=== PATIENT | female | born 1935 | race African-American/Black ===

== ENCOUNTER 2016-06-11 19:00 | Inpatient (IN) | payer MEDICARE ==
[~2016-06-11] VITALS: Ht 157.5 cm; Wt 72.3 kg
[~2016-06-11 19:00] MED LIST: ASPI81TA9 PO; CEFP200T PO; HYDR-2666 PO; LEVO125T PO; LEVO175T2 PO; MAGN400C PO
[2016-06-11 21:11] LABS: BILIRUBIN,URINE NEGATIVE (NEG); GLUCOSE,URINE NEGATIVE (NEG); NITRITE,URINE POSITIVE (NEG); PH,URINE 5.5; PROTEIN,URINE 100 mg/dL (NEG-TRACE); UROBILINOGEN,URINE 0.2 mg/dL (0.2 mg/dL)
[2016-06-11 21:17] LABS: WBC,URINE >40 /HPF (0-4)
[2016-06-11 21:18] LABS: BACTERIA,URINE MANY /HPF (0-FEW); SQUAMOUS EPITHELIAL CELL,UR OCC /LPF
[2016-06-11 21:27] LABS: BASO % 0 % (0-3); EOS % 0 % (0-3); HEMATOCRIT 35.1 % (36.0-47.0); LYMPH # 0.3 x10^3/uL (1.0-4.8); LYMPH % 4 % (24-48); MEAN CORPUSCULAR HEMOGLOBIN 31 pg (25-35); MEAN CORPUSCULAR HGB CONC 34 g/dL (31-37); MEAN CORPUSCULAR VOLUME 91 fL (79-100); MONO % 6 % (0-9); NEUT % 91 % (31-73); PLATELET COUNT 190 x10^3/uL (140-400); RED BLOOD COUNT 3.88 x10^6/uL (3.50-5.40); WHITE BLOOD COUNT 8.9 x10^3/uL (4.0-11.0)
[2016-06-11] MEDS ORDERED: ACETAMINOPHEN 500 MG TABLET PO ONE (21:30)
[2016-06-11 21:44] LABS: CALCIUM 8.9 mg/dL (8.5-10.1); CREATININE 0.9 mg/dL (0.6-1.0); GFR 72.9; POTASSIUM 3.4 mmol/L (3.5-5.1)
[2016-06-11 21:48] LABS: % BASOS 1 % (0-3); ALBUMIN/GLOBULIN RATIO 0.6 (1.0-1.7); TOTAL BILIRUBIN 0.8 mg/dL (0.2-1.0); TOTAL PROTEIN 7.7 g/dL (6.4-8.2)
[2016-06-11 21:49] LABS: PLT ESTIMATE ADEQUATE (ADEQUATE); TOXIC GRANULATION SLIGHT
--- NOTE | 2016-06-11 22:24 | PHYS DOC ---
Past Medical History Past Medical History: Arthritis, Hypothyroid Additional Past Medical Histor: Colitis Past Surgical History: Colectomy Additional Past Surgical Histo: Thyroidectomy Alcohol Use: None Drug Use: None Adult General Chief Complaint Chief Complaint: PAIN ON URINATION HPI HPI Patient is a 80 year old female brought to the ED by family. She has had a fever for 1-2 days. She has not really been acting like herself, she has been sleepy. The patient states she feels ""tired and listless". Denies vomiting or diarrhea. She has had UTI symptoms including burning with urination, a few flecks of blood in her urine, and some occasional urinary incontinence. She has had a UTI before and believes that she has a UTI. PCP Dr. Rader Review of Systems Review of Systems Constitutional: As in history of present illness Eyes: Denies change in visual acuity, redness, or eye pain [] HENT: Denies nasal congestion or sore throat [] Respiratory: Denies cough or shortness of breath [] Cardiovascular: Denies chest pain GI: Denies abdominal pain, nausea, vomiting, bloody stools or diarrhea [] : As in history of present illness Musculoskeletal: Denies back pain or joint pain [] Integument: Denies rash or skin lesions [] Neurologic: She has a headache today and just feels weak all over, nonfocal Current Medications Current Medications Current Medications Medications (Trade) Dose Ordered Sig/[facility] Start Time Stop Time Status Last Admin Dose Admin Acetaminophen (Tylenol) 1,000 mg 1X ONCE 06/11/16 21:30 06/11/16 21:31 DC 06/11/16 21:48 1,000 MG Allergies Allergies Allergies Coded Allergies Type Severity Reaction Last Updated Verified meperidine Allergy Intermediate 02/25/15 No Physical Exam Physical Exam Constitutional: Well developed, well nourished, no acute distress, non-toxic appearance. Alert, appears to be mentating normally to me, looks young for her age HENT: Normocephalic, atraumatic, bilateral external ears normal, nose normal. [] Eyes: conjunctiva normal, no discharge. [] Neck: Normal range of motion, no stridor. [] Cardiovascular:Heart rate regular rhythm, no murmur [] Lungs & Thorax: Bilateral breath sounds clear to auscultation [] Abdomen: Bowel sounds normal, soft, no tenderness, no masses, no pulsatile masses. [] Skin: Warm, dry, no erythema, no rash. [] Back: No tenderness, no CVA tenderness. [] Extremities: No tenderness, no cyanosis, no clubbing, ROM intact, no edema. [] Neurologic: Alert and oriented X 3, normal motor function, normal sensory function, no focal deficits noted. [] Current Patient Data Vital Signs Vital Signs Date Time Temp Pulse Resp B/P (MAP) Pulse Ox O2 Delivery O2 Flow Rate FiO2 06/11/16 22:00 88 20 96 06/11/16 21:30 125/80 (95) 06/11/16 20:05 103.2 Room Air 103.2 Lab Values Laboratory Tests Test 06/11/16 19:54 06/11/16 20:20 Urine Collection Type Unknown Urine Color Yellow Urine Clarity Cloudy Urine pH 5.5 Urine Specific [place] 1.015 Urine Protein 100 mg/dL (NEG-TRACE) Urine Glucose (UA) Negative mg/dL (NEG) Urine Ketones (Stick) 15 mg/dL (NEG) Urine Blood Large (NEG) Urine Nitrite Positive (NEG) Urine Bilirubin Negative (NEG) Urine Urobilinogen Dipstick 0.2 mg/dL (0.2 mg/dL) Urine Leukocyte Esterase Large (NEG) Urine RBC 3-5 /HPF (0-2) Urine WBC >40 /HPF (0-4) Urine Squamous Epithelial Cells Occ /LPF Urine Bacteria Many /HPF (0-FEW) Urine Mucus Slight /LPF White Blood Count 8.9 x10^3/uL (4.0-11.0) Red Blood Count 3.88 x10^6/uL (3.50-5.40) Hemoglobin 12.0 g/dL (12.0-15.5) Hematocrit 35.1 % (36.0-47.0) L Mean Corpuscular Volume 91 fL (79-100) Mean Corpuscular Hemoglobin 31 pg (25-35) Mean Corpuscular Hemoglobin Concent 34 g/dL (31-37) Red Cell Distribution Width 15.0 % (11.5-14.5) H Platelet Count 190 x10^3/uL (140-400) Neutrophils (%) (Auto) 91 % (31-73) H Lymphocytes (%) (Auto) 4 % (24-48) L Monocytes (%) (Auto) 6 % (0-9) Eosinophils (%) (Auto) 0 % (0-3) Basophils (%) (Auto) 0 % (0-3) Neutrophils # (Auto) 8.1 x10^3uL (1.8-7.7) H Lymphocytes # (Auto) 0.3 x10^3/uL (1.0-4.8) L Monocytes # (Auto) 0.5 x10^3/uL (0.0-1.1) Eosinophils # (Auto) 0.0 x10^3/uL (0.0-0.7) Basophils # (Auto) 0.0 x10^3/uL (0.0-0.2) Segmented Neutrophils % 70 % (35-66) H Band Neutrophils % 14 % (0-9) H Lymphocytes % 10 % (24-48) L Monocytes % 5 % (0-10) Basophils % 1 % (0-3) Toxic Granulation Slight Platelet Estimate Adequate (ADEQUATE) Sodium Level 137 mmol/L (136-145) Potassium Level 3.4 mmol/L (3.5-5.1) L Chloride Level 99 mmol/L (98-107) Carbon Dioxide Level 25 mmol/L (21-32) Anion Gap 13 (6-14) Blood Urea Nitrogen 13 mg/dL (7-20) Creatinine 0.9 mg/dL (0.6-1.0) Estimated GFR (Cockcroft-Gault) 72.9 BUN/Creatinine Ratio 14 (6-20) Glucose Level 157 mg/dL (70-99) H Calcium Level 8.9 mg/dL (8.5-10.1) Total Bilirubin 0.8 mg/dL (0.2-1.0) Aspartate Amino Transferase (AST) 22 U/L (15-37) Alanine Aminotransferase (ALT) 15 U/L (14-59) Alkaline Phosphatase 107 U/L (46-116) Total Protein 7.7 g/dL (6.4-8.2) Albumin 3.0 g/dL (3.4-5.0) L Albumin/Globulin Ratio 0.6 (1.0-1.7) L Laboratory Tests 06/11/16 20:20 Laboratory Tests 06/11/16 20:20 EKG EKG [] Radiology/Procedures Radiology/Procedures [] Course & Med Decision Making Course & Med Decision Making Pertinent Labs and Imaging studies reviewed. (See chart for details) 80-year-old female presents with fever to 103, not feeling well, excessively sleepy, believes she may have UTI symptoms. Labs reviewed by me. She does have a UTI, culture was ordered. Other labs relatively unremarkable. I do believe with her altered mental status per family and her high fever she should be hospitalized for IV antibiotics. The patient and family are agreeable to that plan. I spoke with Dr. Logan, taking calls for Dr. Rader. He will admit the patient. I gave her a dose of Rocephin. [] Dragon Disclaimer Dragon Disclaimer This electronic medical record was generated, in whole or in part, using a voice recognition dictation system. Departure Departure Impression: Primary Impression: Altered level of consciousness Additional Impression: Urinary tract infection Disposition: ADMITTED INPATIENT Admitting Physician: Caprice Rader Condition: STABLE Referrals: CAPRICE RADER MD (PCP) Problem Qualifiers NBA HERMAN MD June 11, 2016 22:24
[2016-06-11] MEDS ORDERED: IV NORMAL SALINE 1000ML BAG 1,000 ML IV SCH (22:30)
--- NOTE | 2016-06-11 22:39 | ACF ---
Admission Forms Criteria URINARY COMPLICATIONS Clinical Indications for Inpatient Care (Place 'X' for any and all applicable criteria): Ongoing inpatient care may be indicated for urinary complications with ANY ONE of the following: [X ]I. Urinary tract infection requiring inpatient care as indicated by ANY ONE of the following(8)(19)(20): [ ]a) Severe symptoms (eg, high fever, severe pain) [ ]b) Vomiting or dehydration requiring ongoing inpatient care [X ]c) IV antibiotic needs that cannot be managed at lower level of care [ ]d) Hemodynamic instability [ ]e) Obstruction of collecting system by stone or tumor [ ]II. Urinary retention requiring drainage or surgery (3)(4)(5)(17)(18) [ ]III. Renal failure (Use Renal Failure Criteria for further information.) [ ]IV. Oliguria(30) [ ]V. Post obstructive diuresis requiring close monitoring of urine output and intravenous compensation for excessive fluid losses(33) Extended stay beyond goal length of stay for primary condition may be needed until ALL of the following are present(3)(4)(5)(8): [ ]a) Renal function (creatinine) at baseline, or daily decreases in creatinine consistent with renal function return [ ]b) Voiding adequately or with urinary catheter or percutaneous suprapubic tube and management regimen in place that is performable at lower level of care. [ ]c) Urine output adequate [ ]d) Fever absent or resolving [ ]e) Infection absent or treatable at next level of care The original [employer] content created by [employer] has been revised. The portions of the content which have been revised are identified through the use of italic text or in bold, and [facility] has neither reviewed nor approved the modified material. All other unmodified content is copyright [facility] Please see references footnoted in the original [facility] edition 2016 Admission Criteria Met?: Yes KYLAH MEZA June 11, 2016 22:39
[2016-06-11 22:57] VITALS: BP 125/53
[2016-06-12 03:08] VITALS: BP 107/59
[2016-06-12] MEDS: ACETAMINOPHEN 325 MG TABLET. PO PRN ×2 (06:23→15:30)
[2016-06-12 07:00] VITALS: BP 128/68
[2016-06-12] MEDS ORDERED: IV NORMAL SALINE 1000ML BAG 1,000 ML IV SCH (08:45)
--- NOTE | 2016-06-12 09:17 | PDOC1 ---
TAIWO ARTHUR NET WASHER 06/12/16 0916: HISTORY AND PHYSICAL Chief Complaint Chief Complaint This 80 year old female has been admitted with a chief complaint of UTI. She presented to the ED with altered mental status for several day, dysuria with some incontinence and fever. Her temperature on admit was 103.2F. UA was positive. She was given Tylenol 1gm po, Rocephin 1gm IV, NS 100cc/hr and admitted. Problem List Problems Medical Problems: (1) Altered level of consciousness Status: Acute (2) Urinary tract infection Status: Acute Past Medical History Cardiovascular: HTN, [place] (h/o NSTEMI 2015), Pulmonary hypertension CENTRAL NERVOUS SYSTEM: Other GI: Other (cholelithiasis, ulcerative colitis ) Musculoskeletal: Osteoarthritis Renal/: Other (h/o hydroureteronephrosis/UTI sepsis 2015) Endocrine: Hypothyroidism (surgical induced ) Past Surgical History Past Surgical History: Tonsillectomy, Other (colectomy/ileostomy; thyroidectomy ) Past Family History Family History: Coronary Artery Disease Past Social History PSH negative h/o tobacco, ETOH, or illicit drug use Review of Symptoms Review of Symptoms A 14 point ROS was completed with the following noted as positive: per HPI + headache Other systems reviewed and negative. Medications medications reviewed and reconciled Allergy Allergies Coded Allergies Type Severity Reaction Last Updated Verified meperidine Allergy Intermediate 02/25/15 No Physical Exam Physical Exam General appearance - alert, ill appearing, and in mild distress r/t headache Mental Status - alert, oriented to person, place, and time, affect appropriate to mood Head - normal Chest - clear to auscultation, no wheezes, rales or rhonchi, symmetric air entry Heart - S1 and S2 normal Abdomen - soft, nontender, nondistended, no masses or organomegaly Neurological - no acute focal neurological deficits noted. Musculoskeletal - no muscular tenderness noted Extremities - no pedal edema Skin - warm and dry VTE Prophylaxis Ordered VTE Prophylaxis Devices: Yes VTE Pharmacological Prophylaxi: No Assessment Labs Laboratory Tests Test 06/11/16 19:54 06/11/16 20:20 Urine Collection Type Unknown Urine Color Yellow Urine Clarity Cloudy Urine pH 5.5 Urine Specific [place] 1.015 Urine Protein 100 mg/dL (NEG-TRACE) Urine Glucose (UA) Negative mg/dL (NEG) Urine Ketones (Stick) 15 mg/dL (NEG) Urine Blood Large (NEG) Urine Nitrite Positive (NEG) Urine Bilirubin Negative (NEG) Urine Urobilinogen Dipstick 0.2 mg/dL (0.2 mg/dL) Urine Leukocyte Esterase Large (NEG) Urine RBC 3-5 /HPF (0-2) Urine WBC >40 /HPF (0-4) Urine Squamous Epithelial Cells Occ /LPF Urine Bacteria Many /HPF (0-FEW) Urine Mucus Slight /LPF White Blood Count 8.9 x10^3/uL (4.0-11.0) Red Blood Count 3.88 x10^6/uL (3.50-5.40) Hemoglobin 12.0 g/dL (12.0-15.5) Hematocrit 35.1 % (36.0-47.0) Mean Corpuscular Volume 91 fL (79-100) Mean Corpuscular Hemoglobin 31 pg (25-35) Mean Corpuscular Hemoglobin Concent 34 g/dL (31-37) Red Cell Distribution Width 15.0 % (11.5-14.5) Platelet Count 190 x10^3/uL (140-400) Neutrophils (%) (Auto) 91 % (31-73) Lymphocytes (%) (Auto) 4 % (24-48) Monocytes (%) (Auto) 6 % (0-9) Eosinophils (%) (Auto) 0 % (0-3) Basophils (%) (Auto) 0 % (0-3) Neutrophils # (Auto) 8.1 x10^3uL (1.8-7.7) Lymphocytes # (Auto) 0.3 x10^3/uL (1.0-4.8) Monocytes # (Auto) 0.5 x10^3/uL (0.0-1.1) Eosinophils # (Auto) 0.0 x10^3/uL (0.0-0.7) Basophils # (Auto) 0.0 x10^3/uL (0.0-0.2) Segmented Neutrophils % 70 % (35-66) Band Neutrophils % 14 % (0-9) Lymphocytes % 10 % (24-48) Monocytes % 5 % (0-10) Basophils % 1 % (0-3) Toxic Granulation Slight Platelet Estimate Adequate (ADEQUATE) Sodium Level 137 mmol/L (136-145) Potassium Level 3.4 mmol/L (3.5-5.1) Chloride Level 99 mmol/L (98-107) Carbon Dioxide Level 25 mmol/L (21-32) Anion Gap 13 (6-14) Blood Urea Nitrogen 13 mg/dL (7-20) Creatinine 0.9 mg/dL (0.6-1.0) Estimated GFR (Cockcroft-Gault) 72.9 BUN/Creatinine Ratio 14 (6-20) Glucose Level 157 mg/dL (70-99) Calcium Level 8.9 mg/dL (8.5-10.1) Total Bilirubin 0.8 mg/dL (0.2-1.0) Aspartate Amino Transf (AST/SGOT) 22 U/L (15-37) Alanine Aminotransferase (ALT/SGPT) 15 U/L (14-59) Alkaline Phosphatase 107 U/L (46-116) Total Protein 7.7 g/dL (6.4-8.2) Albumin 3.0 g/dL (3.4-5.0) Albumin/Globulin Ratio 0.6 (1.0-1.7) Laboratory Tests Test 06/11/16 19:54 06/11/16 20:20 Urine Collection Type Unknown Urine Color Yellow Urine Clarity Cloudy Urine pH 5.5 Urine Specific [place] 1.015 Urine Protein 100 mg/dL (NEG-TRACE) Urine Glucose (UA) Negative mg/dL (NEG) Urine Ketones (Stick) 15 mg/dL (NEG) Urine Blood Large (NEG) Urine Nitrite Positive (NEG) Urine Bilirubin Negative (NEG) Urine Urobilinogen Dipstick 0.2 mg/dL (0.2 mg/dL) Urine Leukocyte Esterase Large (NEG) Urine RBC 3-5 /HPF (0-2) Urine WBC >40 /HPF (0-4) Urine Squamous Epithelial Cells Occ /LPF Urine Bacteria Many /HPF (0-FEW) Urine Mucus Slight /LPF White Blood Count 8.9 x10^3/uL (4.0-11.0) Red Blood Count 3.88 x10^6/uL (3.50-5.40) Hemoglobin 12.0 g/dL (12.0-15.5) Hematocrit 35.1 % (36.0-47.0) Mean Corpuscular Volume 91 fL (79-100) Mean Corpuscular Hemoglobin 31 pg (25-35) Mean Corpuscular Hemoglobin Concent 34 g/dL (31-37) Red Cell Distribution Width 15.0 % (11.5-14.5) Platelet Count 190 x10^3/uL (140-400) Neutrophils (%) (Auto) 91 % (31-73) Lymphocytes (%) (Auto) 4 % (24-48) Monocytes (%) (Auto) 6 % (0-9) Eosinophils (%) (Auto) 0 % (0-3) Basophils (%) (Auto) 0 % (0-3) Neutrophils # (Auto) 8.1 x10^3uL (1.8-7.7) Lymphocytes # (Auto) 0.3 x10^3/uL (1.0-4.8) Monocytes # (Auto) 0.5 x10^3/uL (0.0-1.1) Eosinophils # (Auto) 0.0 x10^3/uL (0.0-0.7) Basophils # (Auto) 0.0 x10^3/uL (0.0-0.2) Segmented Neutrophils % 70 % (35-66) Band Neutrophils % 14 % (0-9) Lymphocytes % 10 % (24-48) Monocytes % 5 % (0-10) Basophils % 1 % (0-3) Toxic Granulation Slight Platelet Estimate Adequate (ADEQUATE) Sodium Level 137 mmol/L (136-145) Potassium Level 3.4 mmol/L (3.5-5.1) Chloride Level 99 mmol/L (98-107) Carbon Dioxide Level 25 mmol/L (21-32) Anion Gap 13 (6-14) Blood Urea Nitrogen 13 mg/dL (7-20) Creatinine 0.9 mg/dL (0.6-1.0) Estimated GFR (Cockcroft-Gault) 72.9 BUN/Creatinine Ratio 14 (6-20) Glucose Level 157 mg/dL (70-99) Calcium Level 8.9 mg/dL (8.5-10.1) Total Bilirubin 0.8 mg/dL (0.2-1.0) Aspartate Amino Transf (AST/SGOT) 22 U/L (15-37) Alanine Aminotransferase (ALT/SGPT) 15 U/L (14-59) Alkaline Phosphatase 107 U/L (46-116) Total Protein 7.7 g/dL (6.4-8.2) Albumin 3.0 g/dL (3.4-5.0) Albumin/Globulin Ratio 0.6 (1.0-1.7) Plan Plan 1. UTI with SIRS, no sepsis 2. severe weakness and debility 3. encephalopathy due to UTI 4. HTN 5. hypothyroid surgical induced 6. elevated BS 7. pulmonary HTN 8. cholelithiasis asymptomatic 9. h/o hydroureteronephrosis UTI sepsis Feb 2015 10. h/o ulcerative colitis with colectomy/ileostomy 11. severe PCL malnutrition decreased oral intake 12. h/o NSTEMI Feb 2015 13. frontal headache 14. hypokalemia POA PLAN: UTI ED urine sample voided, will obtain urine c/s straight cath Rocephin 1gm IV continue h/o hydroureteronephrosis -will obtain US renal fever T103.2F improved to 98.1-no leukocytosis +SIRS continue IV NS 100cc/hr hypokalemia ADmit K 3.4 recheck 06/12 abnormal glucose check Hba1c 06/12 WILLSON Tylenol [place] 5/325 prn malnutrition support intake weakness/debility PT OT eval and treat encephalopathy improved DVT/GI prophylaxis SCD/DARIO PPI For more details regarding further plans, please refer to the orders. CAPRICE RADER MD 06/12/16 0925: HISTORY AND PHYSICAL Plan Plan The patient was seen and examined by me. Chart reviewed and plan of care formulated. Discussed with, reviewed and agree with SHEET SORTER's notes, plan of care and orders with modifications as necessary. For more details regarding further plans, please refer to the orders. Hypokalemia- replace. ID consult.Fever 103.2/? acute pyelonephritis. Acute metabolic encephalopathy - better. D/w pt and her daughter. JERSONTAIWOARVIND Kent APRN June 12, 2016 09:16 CAPRICE RADER MD June 12, 2016 09:25
[2016-06-12] MEDS ORDERED: ACETAMINOPHEN 325 MG TABLET. PO PRN (09:30)
[2016-06-12] MEDS ORDERED: POTASSIUM CHLORIDE 20 MEQ TABLET.ER. PO ONE (09:30)
[2016-06-12] MEDS ORDERED: VANCOMYCIN PER PHARMACY MC PRN (10:00)
--- NOTE | 2016-06-12 10:00 | PDOC ---
Infectious Disease Note Vital Sign Vital Signs Vital Signs Date Time Temp Pulse Resp B/P (MAP) Pulse Ox O2 Delivery O2 Flow Rate FiO2 06/12/16 07:00 98.1 94 20 128/68 (88) 95 Room Air 98.1 Physical Exam PHYSICAL EXAM Labs Lab Laboratory Tests Test 06/11/16 19:54 06/11/16 20:20 Urine Collection Type Unknown Urine Color Yellow Urine Clarity Cloudy Urine pH 5.5 Urine Specific [place] 1.015 Urine Protein 100 mg/dL (NEG-TRACE) Urine Glucose (UA) Negative mg/dL (NEG) Urine Ketones (Stick) 15 mg/dL (NEG) Urine Blood Large (NEG) Urine Nitrite Positive (NEG) Urine Bilirubin Negative (NEG) Urine Urobilinogen Dipstick 0.2 mg/dL (0.2 mg/dL) Urine Leukocyte Esterase Large (NEG) Urine RBC 3-5 /HPF (0-2) Urine WBC >40 /HPF (0-4) Urine Squamous Epithelial Cells Occ /LPF Urine Bacteria Many /HPF (0-FEW) Urine Mucus Slight /LPF White Blood Count 8.9 x10^3/uL (4.0-11.0) Red Blood Count 3.88 x10^6/uL (3.50-5.40) Hemoglobin 12.0 g/dL (12.0-15.5) Hematocrit 35.1 % (36.0-47.0) Mean Corpuscular Volume 91 fL (79-100) Mean Corpuscular Hemoglobin 31 pg (25-35) Mean Corpuscular Hemoglobin Concent 34 g/dL (31-37) Red Cell Distribution Width 15.0 % (11.5-14.5) Platelet Count 190 x10^3/uL (140-400) Neutrophils (%) (Auto) 91 % (31-73) Lymphocytes (%) (Auto) 4 % (24-48) Monocytes (%) (Auto) 6 % (0-9) Eosinophils (%) (Auto) 0 % (0-3) Basophils (%) (Auto) 0 % (0-3) Neutrophils # (Auto) 8.1 x10^3uL (1.8-7.7) Lymphocytes # (Auto) 0.3 x10^3/uL (1.0-4.8) Monocytes # (Auto) 0.5 x10^3/uL (0.0-1.1) Eosinophils # (Auto) 0.0 x10^3/uL (0.0-0.7) Basophils # (Auto) 0.0 x10^3/uL (0.0-0.2) Segmented Neutrophils % 70 % (35-66) Band Neutrophils % 14 % (0-9) Lymphocytes % 10 % (24-48) Monocytes % 5 % (0-10) Basophils % 1 % (0-3) Toxic Granulation Slight Platelet Estimate Adequate (ADEQUATE) Sodium Level 137 mmol/L (136-145) Potassium Level 3.4 mmol/L (3.5-5.1) Chloride Level 99 mmol/L (98-107) Carbon Dioxide Level 25 mmol/L (21-32) Anion Gap 13 (6-14) Blood Urea Nitrogen 13 mg/dL (7-20) Creatinine 0.9 mg/dL (0.6-1.0) Estimated GFR (Cockcroft-Gault) 72.9 BUN/Creatinine Ratio 14 (6-20) Glucose Level 157 mg/dL (70-99) Calcium Level 8.9 mg/dL (8.5-10.1) Total Bilirubin 0.8 mg/dL (0.2-1.0) Aspartate Amino Transf (AST/SGOT) 22 U/L (15-37) Alanine Aminotransferase (ALT/SGPT) 15 U/L (14-59) Alkaline Phosphatase 107 U/L (46-116) Total Protein 7.7 g/dL (6.4-8.2) Albumin 3.0 g/dL (3.4-5.0) Albumin/Globulin Ratio 0.6 (1.0-1.7) Objective Assessment Fever UTI - POA 5/7 Bandemia WILLSON Plan Plan of Care Change to Cefepime/Vanc F/u labs and cults Reviewed previous records d/w daughter Thank you # [id number] HADLEY RICE MD June 12, 2016 10:00
[2016-06-12 10:17] LABS: BASO % 0 % (0-3); EOS % 0 % (0-3); HEMATOCRIT 33.7 % (36.0-47.0); HEMOGLOBIN 11.5 g/dL (12.0-15.5); LYMPH # 0.4 x10^3/uL (1.0-4.8); LYMPH % 5 % (24-48); MEAN CORPUSCULAR HEMOGLOBIN 31 pg (25-35); MEAN CORPUSCULAR HGB CONC 34 g/dL (31-37); MEAN CORPUSCULAR VOLUME 91 fL (79-100); MONO % 7 % (0-9); NEUT % 88 % (31-73); PLATELET COUNT 175 x10^3/uL (140-400); RED CELL DISTRIBUTION WIDTH 15.3 % (11.5-14.5); WHITE BLOOD COUNT 8.6 x10^3/uL (4.0-11.0)
[2016-06-12] MEDS: PANTOPRAZOLE 40 MG TABLET.DR. PO SCH (10:20)
[2016-06-12] MEDS: LEVOTHYROXINE 175 MCG TABLET PO SCH (10:20)
[2016-06-12] MEDS: HYDROcodone/APAP 5/325MG 1 TAB TABLET PO PRN ×2 (10:23→18:21)
[2016-06-12 10:24] LABS: CALCIUM 8.4 mg/dL (8.5-10.1); CREATININE 1.3 mg/dL (0.6-1.0); GFR 47.7; POTASSIUM 3.2 mmol/L (3.5-5.1)
[2016-06-12] MEDS: POTASSIUM CHLORIDE 20 MEQ in IV NORMAL SALINE 1000ML BAG 1,000 ML IV SCH (10:25)
--- NOTE | 2016-06-12 10:53 | RAD ---
Exam performed: Renal sonogram. Indication: Urinary tract infection Date of Service: 06/12/16 . Comparison: None available Technique: Real-time grayscale imaging of the kidneys is performed and images are obtained. Findings: Both kidneys are normal in size and echogenicity. The right kidney measures 10.8 x 4.9 x 4.4 cm whereas the left kidney measures 10.5 x 4.6 x 6.2 cm. There is mild right hydronephrosis. No perinephric fluid collection. The urinary bladder is nondistended and appears normal. Impression: 1. Mild right hydronephrosis, otherwise unremarkable exam.
[2016-06-12 10:56] VITALS: BP 94/54
[2016-06-12] MEDS ORDERED: VANCOMYCIN 1.5 GM in IV NORMAL SALINE 500ML BAG 500 ML IV ONE (11:00)
[2016-06-12] MEDS ORDERED: VANCOMYCIN 1.75 GM in IV NORMAL SALINE 500ML BAG 500 ML IV ONE (12:00)
[2016-06-12] MEDS: CEFEPIME HCL 1 GM in IV NORMAL SALINE 50ML 50 ML IV SCH ×2 (13:01→16:00)
[2016-06-12 14:45] VITALS: BP 136/81
[2016-06-12] MEDS ORDERED: BENZOCAINE/MENTHOL LOZENGE. PO PRN (16:15)
--- NOTE | 2016-06-12 17:07 | RAD ---
Exam performed: Two-view chest Indication: cough Date of Service: 06/12/2016 6:14 PM Comparison: One view chest from 02/20/15. PA and lateral view chest findings: Cardiomediastinal silhouette is within limits of normal. Ectatic aorta .No acute infiltrates, effusion or pneumothorax is detected. There is a nodule in the right upper lobe. Stable Minimal blunting of the right costophrenic angle, likely pleural thickening. The bony structures are normal. Impression: No acute cardiac pulmonary process detected.
[2016-06-12 19:00] VITALS: BP 86/54
[2016-06-12 23:00] VITALS: BP 97/53
[2016-06-13] MEDS: CEFEPIME HCL 1 GM in IV NORMAL SALINE 50ML 50 ML IV SCH ×2 (00:01→05:55)
[2016-06-13] MEDS: POTASSIUM CHLORIDE 20 MEQ in IV NORMAL SALINE 1000ML BAG 1,000 ML IV SCH ×2 (02:49→05:42)
[2016-06-13] MEDS: ACETAMINOPHEN 325 MG TABLET. PO PRN (02:54)
--- NOTE | 2016-06-13 03:35 | CONS ---
DATE OF CONSULTATION: 06/12/2016 LOCATION: The patient's room 550. REQUESTING PHYSICIAN: Dr. Roslyn Medina. REASON FOR CONSULTATION: Fever. HISTORY OF PRESENT ILLNESS: The patient is a pleasant 80-year-old -[place] female with a history of hypothyroidism as well as ulcerative colitis with history of colectomy as well as previous urinary tract infection. She has not been on any antibiotics for several months, but for the past week, she has been feeling somewhat down and more "listless." She does have complications with some incontinence of her urine, but did state that her urine has become darker over the past several days. Additionally, she has felt nauseated. She has had headache and had some shaking chills. She presented to [facility] on the and was found to have a temperature of 103.2. White blood cell count was 8.9, but she had 14% bands. Urinalysis was concerning for urinary tract infection. She has not had any imaging performed. She was placed on Rocephin and admitted to the hospital. Currently, she is lying in bed. She has a mild headache. No sinus issues or drainage. No sore throat or cough or chest pain. She has an ostomy. She denies any falls or traumas. No rashes. PAST MEDICAL HISTORY: Positive for previous urinary tract infection with some sepsis. Cultures were negative. History of hypertension, myocardial infarction, non-STEMI, pulmonary hypertension, cholelithiasis, ulcerative colitis, osteoarthritis, and hypothyroidism. PAST SURGICAL HISTORY: Positive for tonsillectomy, thyroidectomy, colectomy with ileostomy. REVIEW OF SYSTEMS: Otherwise negative except for mentioned above. ALLERGIES: LISTED MEPERIDINE. SOCIAL HISTORY: No tobacco, alcohol or illicit drugs. She has very good support. Her daughter is currently with her. FAMILY HISTORY: Positive for coronary artery disease. CURRENT MEDICATIONS: Include Rocephin, Tylenol, hydrocodone, levothyroxine, pantoprazole. PHYSICAL EXAMINATION: VITAL SIGNS: T-max was 103.2 at presentation, currently 98.1, pulse 94, respirations 20, blood pressure 120/68, satting 95% on room air. CONSTITUTIONAL: She is very pleasant. She is in no acute distress. She looks tired. HEENT: Pupils are equal and reactive. Oral cavity and pharynx, she has some dentures. NECK: Supple with good range of motion. No JVD. LUNGS: Clear to auscultation. HEART: S1, S2. ABDOMEN: Soft, nontender, nondistended. Ostomy is in place. EXTREMITIES: No clubbing, cyanosis or gross edema. SKIN: Warm to touch without signs of rash. NEUROLOGIC: She is nonfocal and appropriate, moves all extremities. PSYCHIATRIC: Affect is appropriate and pleasant. LABORATORY VALUES: White count 8.9, hemoglobin 12, platelets of 190 with 70 segs, 14 bands. Creatinine is 0.9, glucose of 157 with normal liver function study tests. Urinalysis concerning for urinary tract infection. Cultures are pending. There are no imaging. IMPRESSION: 1. Fever. 2. Urinary tract infection present on admission. 3. Bandemia. 4. Headache. RECOMMENDATIONS: We will change to cefepime and vancomycin. The vancomycin to help cover potential Enterococcus. She has had previous urinary tract infections treated with Rocephin and cefpodoxime in the past with the concern for a potential resistance. We will follow up on labs and cultures and I did review her previous records. This was discussed with the daughter. Thank you for allowing me to participate in the patient's care. If you have any questions, please do not hesitate to contact me. HADLEY RICE MD DR: JACQUI/yordy JOB#: [id number] / [id number]
[2016-06-13] MEDS: LEVOTHYROXINE 175 MCG TABLET PO SCH (05:55)
[2016-06-13 07:00] VITALS: BP 102/57
[2016-06-13 07:11] LABS: BASO % 0 % (0-3); EOS % 0 % (0-3); HEMATOCRIT 30.9 % (36.0-47.0); HEMOGLOBIN 10.2 g/dL (12.0-15.5); LYMPH # 0.6 x10^3/uL (1.0-4.8); LYMPH % 8 % (24-48); MEAN CORPUSCULAR HEMOGLOBIN 31 pg (25-35); MEAN CORPUSCULAR HGB CONC 33 g/dL (31-37); MEAN CORPUSCULAR VOLUME 93 fL (79-100); MONO % 11 % (0-9); NEUT % 81 % (31-73); PLATELET COUNT 145 x10^3/uL (140-400); RED BLOOD COUNT 3.33 x10^6/uL (3.50-5.40); WHITE BLOOD COUNT 8.5 x10^3/uL (4.0-11.0)
[2016-06-13 07:21] LABS: POTASSIUM 3.8 mmol/L (3.5-5.1)
[2016-06-13 07:58] LABS: ALBUMIN 2.3 g/dL (3.4-5.0); ALBUMIN/GLOBULIN RATIO 0.6 (1.0-1.7); CALCIUM 8.2 mg/dL (8.5-10.1); CREATININE 0.9 mg/dL (0.6-1.0); GFR 72.9; MAGNESIUM 1.6 mg/dL (1.8-2.4); TOTAL BILIRUBIN 0.4 mg/dL (0.2-1.0); TOTAL PROTEIN 5.9 g/dL (6.4-8.2)
--- NOTE | 2016-06-13 08:15 | PDOC ---
TEJGaudencioTAIWO IBANEZ AUTHORIZATION REPRESENTATIVE 06/13/16 0814: IM PROGRESS NOTES- Objective Vitals Vital Signs Date Time Temp Pulse Resp B/P (MAP) Pulse Ox O2 Delivery O2 Flow Rate FiO2 06/13/16 07:00 99.2 73 20 102/57 (72) 98 Room Air 99.2 Input & Output Intake and Output 06/13/16 07:00 Intake Total 1050 ml Output Total 100 ml Balance 950 ml Intake Oral 950 ml IV Total 100 ml Output Urine Total 100 ml # Voids 103 # Bowel Movements 1 Physical Exam Physical Exam General appearance - alert,well appearing, and in no distress and oriented to person, place, and time Mental Status - alert, oriented to person, place, and time, affect appropriate to mood Head - normal Chest - clear to auscultation, no wheezes, rales or rhonchi, symmetric air entry Heart - S1 and S2 normal Abdomen - soft, nontender, nondistended, no masses or organomegaly Neurological - alert and oriented Musculoskeletal - no muscular tenderness noted Extremities - no pedal edema Skin - warm and dry Labs Laboratory Tests Test 06/11/16 19:54 06/11/16 20:20 06/12/16 10:00 06/13/16 06:55 Urine Collection Type Unknown Urine Color Yellow Urine Clarity Cloudy Urine pH 5.5 Urine Specific [place] 1.015 Urine Protein 100 mg/dL (NEG-TRACE) Urine Glucose (UA) Negative mg/dL (NEG) Urine Ketones (Stick) 15 mg/dL (NEG) Urine Blood Large (NEG) Urine Nitrite Positive (NEG) Urine Bilirubin Negative (NEG) Urine Urobilinogen Dipstick 0.2 mg/dL (0.2 mg/dL) Urine Leukocyte Esterase Large (NEG) Urine RBC 3-5 /HPF (0-2) Urine WBC >40 /HPF (0-4) Urine Squamous Epithelial Cells Occ /LPF Urine Bacteria Many /HPF (0-FEW) Urine Mucus Slight /LPF White Blood Count 8.9 x10^3/uL (4.0-11.0) 8.6 x10^3/uL (4.0-11.0) 8.5 x10^3/uL (4.0-11.0) Red Blood Count 3.88 x10^6/uL (3.50-5.40) 3.70 x10^6/uL (3.50-5.40) 3.33 x10^6/uL (3.50-5.40) Hemoglobin 12.0 g/dL (12.0-15.5) 11.5 g/dL (12.0-15.5) 10.2 g/dL (12.0-15.5) Hematocrit 35.1 % (36.0-47.0) 33.7 % (36.0-47.0) 30.9 % (36.0-47.0) Mean Corpuscular Volume 91 fL (79-100) 91 fL (79-100) 93 fL (79-100) Mean Corpuscular Hemoglobin 31 pg (25-35) 31 pg (25-35) 31 pg (25-35) Mean Corpuscular Hemoglobin Concent 34 g/dL (31-37) 34 g/dL (31-37) 33 g/dL (31-37) Red Cell Distribution Width 15.0 % (11.5-14.5) 15.3 % (11.5-14.5) 15.0 % (11.5-14.5) Platelet Count 190 x10^3/uL (140-400) 175 x10^3/uL (140-400) 145 x10^3/uL (140-400) Neutrophils (%) (Auto) 91 % (31-73) 88 % (31-73) 81 % (31-73) Lymphocytes (%) (Auto) 4 % (24-48) 5 % (24-48) 8 % (24-48) Monocytes (%) (Auto) 6 % (0-9) 7 % (0-9) 11 % (0-9) Eosinophils (%) (Auto) 0 % (0-3) 0 % (0-3) 0 % (0-3) Basophils (%) (Auto) 0 % (0-3) 0 % (0-3) 0 % (0-3) Neutrophils # (Auto) 8.1 x10^3uL (1.8-7.7) 7.6 x10^3uL (1.8-7.7) 6.9 x10^3uL (1.8-7.7) Lymphocytes # (Auto) 0.3 x10^3/uL (1.0-4.8) 0.4 x10^3/uL (1.0-4.8) 0.6 x10^3/uL (1.0-4.8) Monocytes # (Auto) 0.5 x10^3/uL (0.0-1.1) 0.6 x10^3/uL (0.0-1.1) 0.9 x10^3/uL (0.0-1.1) Eosinophils # (Auto) 0.0 x10^3/uL (0.0-0.7) 0.0 x10^3/uL (0.0-0.7) 0.0 x10^3/uL (0.0-0.7) Basophils # (Auto) 0.0 x10^3/uL (0.0-0.2) 0.0 x10^3/uL (0.0-0.2) 0.0 x10^3/uL (0.0-0.2) Segmented Neutrophils % 70 % (35-66) Band Neutrophils % 14 % (0-9) Lymphocytes % 10 % (24-48) Monocytes % 5 % (0-10) Basophils % 1 % (0-3) Toxic Granulation Slight Platelet Estimate Adequate (ADEQUATE) Sodium Level 137 mmol/L (136-145) 139 mmol/L (136-145) 141 mmol/L (136-145) Potassium Level 3.4 mmol/L (3.5-5.1) 3.2 mmol/L (3.5-5.1) 3.8 mmol/L (3.5-5.1) Chloride Level 99 mmol/L (98-107) 103 mmol/L (98-107) 108 mmol/L (98-107) Carbon Dioxide Level 25 mmol/L (21-32) 24 mmol/L (21-32) 22 mmol/L (21-32) Anion Gap 13 (6-14) 12 (6-14) 11 (6-14) Blood Urea Nitrogen 13 mg/dL (7-20) 15 mg/dL (7-20) 11 mg/dL (7-20) Creatinine 0.9 mg/dL (0.6-1.0) 1.3 mg/dL (0.6-1.0) 0.9 mg/dL (0.6-1.0) Estimated GFR (Cockcroft-Gault) 72.9 47.7 72.9 BUN/Creatinine Ratio 14 (6-20) 12 (6-20) Glucose Level 157 mg/dL (70-99) 190 mg/dL (70-99) 114 mg/dL (70-99) Calcium Level 8.9 mg/dL (8.5-10.1) 8.4 mg/dL (8.5-10.1) 8.2 mg/dL (8.5-10.1) Total Bilirubin 0.8 mg/dL (0.2-1.0) 0.4 mg/dL (0.2-1.0) Aspartate Amino Transf (AST/SGOT) 22 U/L (15-37) 26 U/L (15-37) Alanine Aminotransferase (ALT/SGPT) 15 U/L (14-59) 16 U/L (14-59) Alkaline Phosphatase 107 U/L (46-116) 81 U/L (46-116) Total Protein 7.7 g/dL (6.4-8.2) 5.9 g/dL (6.4-8.2) Albumin 3.0 g/dL (3.4-5.0) 2.3 g/dL (3.4-5.0) Albumin/Globulin Ratio 0.6 (1.0-1.7) 0.6 (1.0-1.7) Hemoglobin A1c 5.2 % (4.8-5.6) Magnesium Level 1.6 mg/dL (1.8-2.4) Laboratory Tests Test 06/12/16 10:00 06/13/16 06:55 White Blood Count 8.6 x10^3/uL (4.0-11.0) 8.5 x10^3/uL (4.0-11.0) Red Blood Count 3.70 x10^6/uL (3.50-5.40) 3.33 x10^6/uL (3.50-5.40) Hemoglobin 11.5 g/dL (12.0-15.5) 10.2 g/dL (12.0-15.5) Hematocrit 33.7 % (36.0-47.0) 30.9 % (36.0-47.0) Mean Corpuscular Volume 91 fL (79-100) 93 fL (79-100) Mean Corpuscular Hemoglobin 31 pg (25-35) 31 pg (25-35) Mean Corpuscular Hemoglobin Concent 34 g/dL (31-37) 33 g/dL (31-37) Red Cell Distribution Width 15.3 % (11.5-14.5) 15.0 % (11.5-14.5) Platelet Count 175 x10^3/uL (140-400) 145 x10^3/uL (140-400) Neutrophils (%) (Auto) 88 % (31-73) 81 % (31-73) Lymphocytes (%) (Auto) 5 % (24-48) 8 % (24-48) Monocytes (%) (Auto) 7 % (0-9) 11 % (0-9) Eosinophils (%) (Auto) 0 % (0-3) 0 % (0-3) Basophils (%) (Auto) 0 % (0-3) 0 % (0-3) Neutrophils # (Auto) 7.6 x10^3uL (1.8-7.7) 6.9 x10^3uL (1.8-7.7) Lymphocytes # (Auto) 0.4 x10^3/uL (1.0-4.8) 0.6 x10^3/uL (1.0-4.8) Monocytes # (Auto) 0.6 x10^3/uL (0.0-1.1) 0.9 x10^3/uL (0.0-1.1) Eosinophils # (Auto) 0.0 x10^3/uL (0.0-0.7) 0.0 x10^3/uL (0.0-0.7) Basophils # (Auto) 0.0 x10^3/uL (0.0-0.2) 0.0 x10^3/uL (0.0-0.2) Sodium Level 139 mmol/L (136-145) 141 mmol/L (136-145) Potassium Level 3.2 mmol/L (3.5-5.1) 3.8 mmol/L (3.5-5.1) Chloride Level 103 mmol/L (98-107) 108 mmol/L (98-107) Carbon Dioxide Level 24 mmol/L (21-32) 22 mmol/L (21-32) Anion Gap 12 (6-14) 11 (6-14) Blood Urea Nitrogen 15 mg/dL (7-20) 11 mg/dL (7-20) Creatinine 1.3 mg/dL (0.6-1.0) 0.9 mg/dL (0.6-1.0) Estimated GFR (Cockcroft-Gault) 47.7 72.9 Glucose Level 190 mg/dL (70-99) 114 mg/dL (70-99) Hemoglobin A1c 5.2 % (4.8-5.6) Calcium Level 8.4 mg/dL (8.5-10.1) 8.2 mg/dL (8.5-10.1) BUN/Creatinine Ratio 12 (6-20) Magnesium Level 1.6 mg/dL (1.8-2.4) Total Bilirubin 0.4 mg/dL (0.2-1.0) Aspartate Amino Transf (AST/SGOT) 26 U/L (15-37) Alanine Aminotransferase (ALT/SGPT) 16 U/L (14-59) Alkaline Phosphatase 81 U/L (46-116) Total Protein 5.9 g/dL (6.4-8.2) Albumin 2.3 g/dL (3.4-5.0) Albumin/Globulin Ratio 0.6 (1.0-1.7) Meds Current Medications Acetaminophen (Tylenol) 650 mg PRN Q6HRS PRN PO MILD PAIN / TEMP; Start at 09:30 Acetaminophen/ Hydrocodone Bitart (Lortab 5/325) 1 tab PRN Q6HRS PRN PO PAIN Last administered on 06/12/16 18:21; Start 06/12/16 at 08:45 Cefepime HCl 1 gm/ Sodium Chloride 50 ml @ 100 mls/hr Q8HRS IV Last administered on 06/13/16 05:55; Start 06/12/16 at 11:00 Ceftriaxone Sodium 1 gm/ Sodium Chloride 50 ml @ 100 mls/hr QHS IV ; Start 06/12 at 21:00; Stop 06/12/16 at 21:00; Status DC Levothyroxine Sodium (Synthroid) 175 mcg DAILY07 PO Last administered on 05:55; Start 06/12/16 at 09:00 Pantoprazole Sodium (Protonix) 40 mg DAILYAC PO Last administered on 06/12/16 10:20; Start 06/12/16 at 09:00 Potassium Chloride 20 meq/ Sodium Chloride 1,010 ml @ 100 mls/hr Q10H6M IV Last administered on 06/13/16 02:49; Start 06/12/16 at 09:30 Potassium Chloride (Klor-Con) 20 meq 1X ONCE PO Last administered on 06/12/16 10:21; Start 06/12/16 at 09:30; Stop 06/12/16 at 09:31; Status DC Sodium Chloride 1,000 ml @ 100 mls/hr Q10H IV ; Start 06/12/16 at 08:45; Stop at 09:26; Status DC Throat Lozenges (Cepacol Sore Throat Lozenge) 1 mitzi PRN Q2HRS PRN PO SORE THROAT; Start 06/12/16 at 16:15 Vancomycin HCl 1 each 1X ONCE MC ; Start 06/14/16 at 13:30; Stop 06/14/16 at 13 :31 Vancomycin HCl (Vanco Per Pharmacy) 1 each PRN DAILY PRN MC SEE COMMENTS Last administered on 06/12/16 15:25; Start 06/12/16 at 10:00 Vancomycin HCl 1.5 gm/Sodium Chloride 500 ml @ 250 mls/hr 1X ONCE IV ; Start 06/12/16 at 11:00; Stop 06/12/16 at 11:56; Status DC Vancomycin HCl 1.75 gm/Sodium Chloride 500 ml @ 250 mls/hr 1X ONCE IV Last administered on 06/12/16 14:19; Start 06/12/16 at 12:00; Stop 06/12/16 at 13:59; Status DC Vancomycin HCl 1 gm/Sodium Chloride 250 ml @ 250 mls/hr Q24H IV ; Start at 14:00 Assessment Assessment 1. acute pyleonephritis with sepsis POA 2. severe weakness and debility 3. encephalopathy due to UTI 4. HTN 5. hypothyroid surgical induced 6. elevated BS 7. pulmonary HTN 8. cholelithiasis asymptomatic 9. h/o hydroureteronephrosis UTI sepsis Feb 2015 10. h/o ulcerative colitis with colectomy/ileostomy 11. severe PCL malnutrition decreased oral intake 12. h/o NSTEMI Feb 2015 13. frontal headache 14. hypokalemia POA 15. mild hydronephrosis R POA 16. 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 no JENNIFER or ATN PLAN: acute pyelonephritis with sepsis UTI ED urine sample voided, will obtain urine c/s straight cath Rocephin 1gm IV continue-DCd 06/12 per ID h/o hydroureteronephrosis -will obtain US renal fever T103.2F improved to 98.1-no leukocytosis +sepsis continue IV NS with 20 K 100cc/hr 06/13 mild R sided hydronephrosis per US 06/12 hypotension 06/12 T0300: 103.0F, this AM 99.2F ID consulted cefepime/vanco started 06/12 straight cath urine c/s 06/12 prelim UA ED gm neg iraj hypokalemia/hypomagnesia ADmit K 3.4 06/13 3.8 recheck 06/12 KCL 20po x1 07/02 IVF NS 20K 100cc/hr 06/13 Mg 1.6 -Mg SO4 4gm IV x 1 CKD II with ARF POA VMN due to dehydration no JENNIFER or ATN Admit BUN 13 06/12 15 06/13 11 Cr 0.9 1.3 0.9 Improved with IVF abnormal glucose check Hba1c 06/12 5.4 WILLSON Tylenol Harlan 5/325 prn improved malnutrition support intake appetite improving weakness/debility PT OT eval and treat encephalopathy improved DVT/GI prophylaxis SCD/DARIO PPI For more details regarding further plans, please refer to the orders. Plan Plan For further plan of care, please refer to the orders. CAPRICE RADER MD 06/13/16 0933: IM PROGRESS NOTES- Assessment Assessment The patient was seen and examined by me. Chart reviewed and plan of care formulated. Discussed with, reviewed and agree with RATING EXAMINER's notes, plan of care and orders with modifications as necessary. For more details regarding further plans, please refer to the orders. Still has occasional headaches.Has occasional dry cough.HEENT negative. Headaches due to infection and fever. D/w patient and daughter. urine - gram negative rods. The patient was seen and examined by me. Chart reviewed and plan of care formulated. Discussed with, reviewed and agree with RATING EXAMINER's notes, plan of care and orders with modifications as necessary. For more details regarding further plans, please refer to the orders. TAIWO ARTHUR APRN June 13, 2016 08:14 CAPRICE RADER MD June 13, 2016 09:33
[2016-06-13] MEDS ORDERED: MAGNESIUM SULFATE 4GM 100 ML IV ONE (08:30)
[2016-06-13] MEDS: PANTOPRAZOLE 40 MG TABLET.DR. PO SCH (08:42)
--- NOTE | 2016-06-13 09:39 | PDOC ---
Infectious Disease Note Subjective Subjective Better. + Appetite. WILLSON is improving ROS ROS HEENT: Denies blurred vision, sore throat CV: Denies chest pain RESP: Denies shortness of air, cough GI: Denies n/v/d NEURO: Denies confusion, dizziness MSK: Denies weakness, joint pain/swelling Vital Sign Vital Signs Vital Signs Date Time Temp Pulse Resp B/P (MAP) Pulse Ox O2 Delivery O2 Flow Rate FiO2 06/13/16 07:00 99.2 73 20 102/57 (72) 98 Room Air 99.2 Physical Exam PHYSICAL EXAM GENERAL: NAD, Alert. Looks well HEENT: PERRL, OC/OP- clear NECK: Supple, no JVD, no LN LUNGS: Clear HEART: S1S2, no gallop, no murmur ABD: Soft, NT, no organomegaly, no rebound, ostomy - no CVA tenderness EXT: No edema, no cyanosis SPACE AND STORAGE CLERK: Alert, oriented x 3, no focal neurologic deficit SKIN: No rash IV: ok Labs Lab Laboratory Tests Test 06/12/16 10:00 06/13/16 06:55 White Blood Count 8.6 x10^3/uL (4.0-11.0) 8.5 x10^3/uL (4.0-11.0) Red Blood Count 3.70 x10^6/uL (3.50-5.40) 3.33 x10^6/uL (3.50-5.40) Hemoglobin 11.5 g/dL (12.0-15.5) 10.2 g/dL (12.0-15.5) Hematocrit 33.7 % (36.0-47.0) 30.9 % (36.0-47.0) Mean Corpuscular Volume 91 fL (79-100) 93 fL (79-100) Mean Corpuscular Hemoglobin 31 pg (25-35) 31 pg (25-35) Mean Corpuscular Hemoglobin Concent 34 g/dL (31-37) 33 g/dL (31-37) Red Cell Distribution Width 15.3 % (11.5-14.5) 15.0 % (11.5-14.5) Platelet Count 175 x10^3/uL (140-400) 145 x10^3/uL (140-400) Neutrophils (%) (Auto) 88 % (31-73) 81 % (31-73) Lymphocytes (%) (Auto) 5 % (24-48) 8 % (24-48) Monocytes (%) (Auto) 7 % (0-9) 11 % (0-9) Eosinophils (%) (Auto) 0 % (0-3) 0 % (0-3) Basophils (%) (Auto) 0 % (0-3) 0 % (0-3) Neutrophils # (Auto) 7.6 x10^3uL (1.8-7.7) 6.9 x10^3uL (1.8-7.7) Lymphocytes # (Auto) 0.4 x10^3/uL (1.0-4.8) 0.6 x10^3/uL (1.0-4.8) Monocytes # (Auto) 0.6 x10^3/uL (0.0-1.1) 0.9 x10^3/uL (0.0-1.1) Eosinophils # (Auto) 0.0 x10^3/uL (0.0-0.7) 0.0 x10^3/uL (0.0-0.7) Basophils # (Auto) 0.0 x10^3/uL (0.0-0.2) 0.0 x10^3/uL (0.0-0.2) Sodium Level 139 mmol/L (136-145) 141 mmol/L (136-145) Potassium Level 3.2 mmol/L (3.5-5.1) 3.8 mmol/L (3.5-5.1) Chloride Level 103 mmol/L (98-107) 108 mmol/L (98-107) Carbon Dioxide Level 24 mmol/L (21-32) 22 mmol/L (21-32) Anion Gap 12 (6-14) 11 (6-14) Blood Urea Nitrogen 15 mg/dL (7-20) 11 mg/dL (7-20) Creatinine 1.3 mg/dL (0.6-1.0) 0.9 mg/dL (0.6-1.0) Estimated GFR (Cockcroft-Gault) 47.7 72.9 Glucose Level 190 mg/dL (70-99) 114 mg/dL (70-99) Hemoglobin A1c 5.2 % (4.8-5.6) Calcium Level 8.4 mg/dL (8.5-10.1) 8.2 mg/dL (8.5-10.1) BUN/Creatinine Ratio 12 (6-20) Magnesium Level 1.6 mg/dL (1.8-2.4) Total Bilirubin 0.4 mg/dL (0.2-1.0) Aspartate Amino Transf (AST/SGOT) 26 U/L (15-37) Alanine Aminotransferase (ALT/SGPT) 16 U/L (14-59) Alkaline Phosphatase 81 U/L (46-116) Total Protein 5.9 g/dL (6.4-8.2) Albumin 2.3 g/dL (3.4-5.0) Albumin/Globulin Ratio 0.6 (1.0-1.7) Objective Assessment Fever GNR UTI - POA 5/. Clinically sparkle Bandemia WILLSON - some better Plan Plan of Care Cont Cefepime D/c Vanc F/u labs and cults d/w daughter HADLEY RICE MD June 13, 2016 09:39
[2016-06-13 11:05] VITALS: BP 86/50
[2016-06-13] MEDS: HYDROcodone/APAP 5/325MG 1 TAB TABLET PO PRN ×2 (11:16→23:04)
[2016-06-13] MEDS ORDERED: VANCOMYCIN 1 GM in IV NORMAL SALINE 250ML 250 ML IV SCH (14:00)
[2016-06-13 15:18] VITALS: BP 97/54
[2016-06-13 19:00] VITALS: BP 93/59
[2016-06-13] MEDS ORDERED: CEFEPIME HCL 1 GM in IV NORMAL SALINE 50ML 50 ML IV SCH (21:00)
[2016-06-13 23:00] VITALS: BP 108/71
[2016-06-14 03:00] VITALS: BP 99/64
[2016-06-14] MEDS: LEVOTHYROXINE 175 MCG TABLET PO SCH (05:21)
[2016-06-14 06:20] LABS: BASO % 0 % (0-3); EOS % 2 % (0-3); HEMATOCRIT 33.1 % (36.0-47.0); HEMOGLOBIN 11.3 g/dL (12.0-15.5); LYMPH # 1.6 x10^3/uL (1.0-4.8); LYMPH % 20 % (24-48); MEAN CORPUSCULAR HEMOGLOBIN 31 pg (25-35); MEAN CORPUSCULAR HGB CONC 34 g/dL (31-37); MEAN CORPUSCULAR VOLUME 91 fL (79-100); MONO % 9 % (0-9); NEUT % 69 % (31-73); PLATELET COUNT 165 x10^3/uL (140-400); RED BLOOD COUNT 3.64 x10^6/uL (3.50-5.40); RED CELL DISTRIBUTION WIDTH 15.7 % (11.5-14.5); WHITE BLOOD COUNT 7.7 x10^3/uL (4.0-11.0)
[2016-06-14 06:30] LABS: ALBUMIN 2.3 g/dL (3.4-5.0); ALBUMIN/GLOBULIN RATIO 0.6 (1.0-1.7); CREATININE 0.9 mg/dL (0.6-1.0); GFR 72.9; TOTAL BILIRUBIN 0.3 mg/dL (0.2-1.0)
[2016-06-14 07:00] VITALS: BP 78/51
--- NOTE | 2016-06-14 07:06 | PDOC ---
JERSONTAIWO SAFE AND [employer] INSTALLER 06/14/16 0706: IM PROGRESS NOTES- Subjective Subjective feeling some better Objective Objective alert no distress Vitals Vital Signs Date Time Temp Pulse Resp B/P (MAP) Pulse Ox O2 Delivery O2 Flow Rate FiO2 06/14/16 03:00 98.2 68 20 99/64 (76) 98 Room Air 98.2 Input & Output Intake and Output 06/14/16 07:00 Intake Total 4120 ml Output Total 200 ml Balance 3920 ml Intake Oral 1710 ml IV Total 2410 ml Output Urine Total 200 ml # Voids 5 Physical Exam Physical Exam General appearance - alert,well appearing, and in no distress and oriented to person, place, and time Mental Status - alert, oriented to person, place, and time, affect appropriate to mood Head - normal Chest - clear to auscultation, no wheezes, rales or rhonchi, symmetric air entry Heart - S1 and S2 normal Abdomen - soft, nontender, nondistended, no masses or organomegaly Neurological - alert and oriented Musculoskeletal - no muscular tenderness noted Extremities - no pedal edema Skin - warm and dry Labs Laboratory Tests Test 06/12/16 10:00 06/13/16 06:55 06/14/16 05:05 White Blood Count 8.6 x10^3/uL (4.0-11.0) 8.5 x10^3/uL (4.0-11.0) 7.7 x10^3/uL (4.0-11.0) Red Blood Count 3.70 x10^6/uL (3.50-5.40) 3.33 x10^6/uL (3.50-5.40) 3.64 x10^6/uL (3.50-5.40) Hemoglobin 11.5 g/dL (12.0-15.5) 10.2 g/dL (12.0-15.5) 11.3 g/dL (12.0-15.5) Hematocrit 33.7 % (36.0-47.0) 30.9 % (36.0-47.0) 33.1 % (36.0-47.0) Mean Corpuscular Volume 91 fL (79-100) 93 fL (79-100) 91 fL (79-100) Mean Corpuscular Hemoglobin 31 pg (25-35) 31 pg (25-35) 31 pg (25-35) Mean Corpuscular Hemoglobin Concent 34 g/dL (31-37) 33 g/dL (31-37) 34 g/dL (31-37) Red Cell Distribution Width 15.3 % (11.5-14.5) 15.0 % (11.5-14.5) 15.7 % (11.5-14.5) Platelet Count 175 x10^3/uL (140-400) 145 x10^3/uL (140-400) 165 x10^3/uL (140-400) Neutrophils (%) (Auto) 88 % (31-73) 81 % (31-73) 69 % (31-73) Lymphocytes (%) (Auto) 5 % (24-48) 8 % (24-48) 20 % (24-48) Monocytes (%) (Auto) 7 % (0-9) 11 % (0-9) 9 % (0-9) Eosinophils (%) (Auto) 0 % (0-3) 0 % (0-3) 2 % (0-3) Basophils (%) (Auto) 0 % (0-3) 0 % (0-3) 0 % (0-3) Neutrophils # (Auto) 7.6 x10^3uL (1.8-7.7) 6.9 x10^3uL (1.8-7.7) 5.4 x10^3uL (1.8-7.7) Lymphocytes # (Auto) 0.4 x10^3/uL (1.0-4.8) 0.6 x10^3/uL (1.0-4.8) 1.6 x10^3/uL (1.0-4.8) Monocytes # (Auto) 0.6 x10^3/uL (0.0-1.1) 0.9 x10^3/uL (0.0-1.1) 0.7 x10^3/uL (0.0-1.1) Eosinophils # (Auto) 0.0 x10^3/uL (0.0-0.7) 0.0 x10^3/uL (0.0-0.7) 0.1 x10^3/uL (0.0-0.7) Basophils # (Auto) 0.0 x10^3/uL (0.0-0.2) 0.0 x10^3/uL (0.0-0.2) 0.0 x10^3/uL (0.0-0.2) Sodium Level 139 mmol/L (136-145) 141 mmol/L (136-145) 141 mmol/L (136-145) Potassium Level 3.2 mmol/L (3.5-5.1) 3.8 mmol/L (3.5-5.1) 4.0 mmol/L (3.5-5.1) Chloride Level 103 mmol/L (98-107) 108 mmol/L (98-107) 109 mmol/L (98-107) Carbon Dioxide Level 24 mmol/L (21-32) 22 mmol/L (21-32) 22 mmol/L (21-32) Anion Gap 12 (6-14) 11 (6-14) 10 (6-14) Blood Urea Nitrogen 15 mg/dL (7-20) 11 mg/dL (7-20) 10 mg/dL (7-20) Creatinine 1.3 mg/dL (0.6-1.0) 0.9 mg/dL (0.6-1.0) 0.9 mg/dL (0.6-1.0) Estimated GFR (Cockcroft-Gault) 47.7 72.9 72.9 Glucose Level 190 mg/dL (70-99) 114 mg/dL (70-99) 125 mg/dL (70-99) Hemoglobin A1c 5.2 % (4.8-5.6) Calcium Level 8.4 mg/dL (8.5-10.1) 8.2 mg/dL (8.5-10.1) 8.0 mg/dL (8.5-10.1) BUN/Creatinine Ratio 12 (6-20) 11 (6-20) Magnesium Level 1.6 mg/dL (1.8-2.4) 2.3 mg/dL (1.8-2.4) Total Bilirubin 0.4 mg/dL (0.2-1.0) 0.3 mg/dL (0.2-1.0) Aspartate Amino Transf (AST/SGOT) 26 U/L (15-37) 22 U/L (15-37) Alanine Aminotransferase (ALT/SGPT) 16 U/L (14-59) 16 U/L (14-59) Alkaline Phosphatase 81 U/L (46-116) 86 U/L (46-116) Total Protein 5.9 g/dL (6.4-8.2) 6.0 g/dL (6.4-8.2) Albumin 2.3 g/dL (3.4-5.0) 2.3 g/dL (3.4-5.0) Albumin/Globulin Ratio 0.6 (1.0-1.7) 0.6 (1.0-1.7) Laboratory Tests Test 06/14/16 05:05 White Blood Count 7.7 x10^3/uL (4.0-11.0) Red Blood Count 3.64 x10^6/uL (3.50-5.40) Hemoglobin 11.3 g/dL (12.0-15.5) Hematocrit 33.1 % (36.0-47.0) Mean Corpuscular Volume 91 fL (79-100) Mean Corpuscular Hemoglobin 31 pg (25-35) Mean Corpuscular Hemoglobin Concent 34 g/dL (31-37) Red Cell Distribution Width 15.7 % (11.5-14.5) Platelet Count 165 x10^3/uL (140-400) Neutrophils (%) (Auto) 69 % (31-73) Lymphocytes (%) (Auto) 20 % (24-48) Monocytes (%) (Auto) 9 % (0-9) Eosinophils (%) (Auto) 2 % (0-3) Basophils (%) (Auto) 0 % (0-3) Neutrophils # (Auto) 5.4 x10^3uL (1.8-7.7) Lymphocytes # (Auto) 1.6 x10^3/uL (1.0-4.8) Monocytes # (Auto) 0.7 x10^3/uL (0.0-1.1) Eosinophils # (Auto) 0.1 x10^3/uL (0.0-0.7) Basophils # (Auto) 0.0 x10^3/uL (0.0-0.2) Sodium Level 141 mmol/L (136-145) Potassium Level 4.0 mmol/L (3.5-5.1) Chloride Level 109 mmol/L (98-107) Carbon Dioxide Level 22 mmol/L (21-32) Anion Gap 10 (6-14) Blood Urea Nitrogen 10 mg/dL (7-20) Creatinine 0.9 mg/dL (0.6-1.0) Estimated GFR (Cockcroft-Gault) 72.9 BUN/Creatinine Ratio 11 (6-20) Glucose Level 125 mg/dL (70-99) Calcium Level 8.0 mg/dL (8.5-10.1) Magnesium Level 2.3 mg/dL (1.8-2.4) Total Bilirubin 0.3 mg/dL (0.2-1.0) Aspartate Amino Transf (AST/SGOT) 22 U/L (15-37) Alanine Aminotransferase (ALT/SGPT) 16 U/L (14-59) Alkaline Phosphatase 86 U/L (46-116) Total Protein 6.0 g/dL (6.4-8.2) Albumin 2.3 g/dL (3.4-5.0) Albumin/Globulin Ratio 0.6 (1.0-1.7) Meds Current Medications Cefepime HCl 1 gm/ Sodium Chloride 50 ml @ 100 mls/hr Q12HR IV Last administered on 06/13/16 20:41; Start 06/13/16 at 21:00 Magnesium Sulfate/ Dextrose 100 ml @ 25 mls/hr 1X ONCE IV Last administered on 06/13/16 08:53; Start 06/13/16 at 08:30; Stop 06/13/16 at 12:29; Status DC Potassium Chloride/Sodium Chloride 1,000 ml @ 100 mls/hr Q10H IV Last administered on 06/13/16 20:37; Start 06/13/16 at 17:30 Vancomycin HCl 1 each 1X ONCE MC ; Start 06/14/16 at 13:30; Stop 06/14/16 at 13 :30; Status DC Vancomycin HCl 1 gm/Sodium Chloride 250 ml @ 250 mls/hr Q24H IV ; Start at 14:00; Stop 06/13/16 at 14:00; Status DC Assessment Assessment Assessment 1. acute pyleonephritis with sepsis POA 2. severe weakness and debility 3. encephalopathy due to UTI 4. HTN 5. hypothyroid surgical induced 6. elevated BS 7. pulmonary HTN 8. cholelithiasis asymptomatic 9. h/o hydroureteronephrosis UTI sepsis Feb 2015 10. h/o ulcerative colitis with colectomy/ileostomy 11. severe PCL malnutrition decreased oral intake 12. h/o NSTEMI Feb 2015 13. frontal headache secondary to infection 14. hypokalemia POA 15. mild hydronephrosis R POA 16. 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 no JENNIFER or ATN PLAN: acute pyelonephritis with sepsis UTI ED urine sample voided, will obtain urine c/s straight cath Rocephin 1gm IV continue-DCd 06/12 per ID h/o hydroureteronephrosis -will obtain US renal fever T103.2F improved to 98.1-no leukocytosis +sepsis continue IV NS with 20 K 100cc/hr 06/13 mild R sided hydronephrosis per US 06/12 hypotension 06/12 T0300: 103.0F, this AM 99.2F ID consulted cefepime/vanco started 06/12 straight cath urine c/s 06/12-prelim <[id number] prelim UA ED gm neg iraj Vanc dc 06/12 Tm101.3F 2300 06/12-slowly improving hypokalemia/hypomagnesia ADmit K 3.4 06/14 4.0 recheck 06/12 KCL 20po x1 07/02 IVF NS 20K 100cc/hr 06/13 Mg 1.6 -Mg SO4 4gm IV x 1 06/14 Mg 2.3 CKD II with ARF POA VMN due to dehydration no JENNIFER or ATN Admit BUN 13 06/12 15 06/14 10 Cr 0.9 1.3 0.9 Improved with IVF abnormal glucose check Hba1c 06/12 5.4 WLILSON secondary to infection Tylenol Gueydan 5/325 prn improved malnutrition support intake appetite improving weakness/debility PT OT eval and treat encephalopathy improved DVT/GI prophylaxis SCD/DARIO PPI For more details regarding further plans, please refer to the orders. Plan Plan For further plan of care, please refer to the orders. CAPRICE RADER MD 06/14/16 0943: IM PROGRESS NOTES- Assessment Assessment Fever,hypotension.IV fluids,encouraged to drink fluids. As per daughter,patient is irritable. UTI- klebsiella Pneumoniae. d/w pt,daughter. The patient was seen and examined by me. Chart reviewed and plan of care formulated. Discussed with, reviewed and agree with OPERATIONS TRAINER's notes, plan of care and orders with modifications as necessary. For more details regarding further plans, please refer to the orders. TAIWO ARTHUR APRN June 14, 2016 07:06 CAPRICE RADER MD June 14, 2016 09:43
--- NOTE | 2016-06-14 10:36 | PDOC ---
Infectious Disease Note Subjective Subjective Better. + Appetite. WILLSON is improving ROS ROS GEN: Denies fevers, chills, sweats HEENT: Denies blurred vision, sore throat CV: Denies chest pain RESP: Denies shortness of air, cough GI: Denies n/v/d NEURO: Denies confusion, dizziness MSK: Denies weakness, joint pain/swelling Vital Sign Vital Signs Vital Signs Date Time Temp Pulse Resp B/P (MAP) Pulse Ox O2 Delivery O2 Flow Rate FiO2 06/14/16 07:00 98.6 63 18 78/51 (60) 99 Room Air 98.6 Physical Exam PHYSICAL EXAM GENERAL: NAD, Alert HEENT: PERRL, OC/OP NECK: Supple, no JVD, no LN LUNGS: Clear HEART: S1S2, no gallop, no murmur ABD: Soft, NT, no organomegaly, no rebound EXT: No edema, no cyanosis COIL CONNECTOR: Alert, oriented x 3, no focal neurologic deficit SKIN: No rash IV: ok Labs Lab Laboratory Tests Test 06/14/16 05:05 White Blood Count 7.7 x10^3/uL (4.0-11.0) Red Blood Count 3.64 x10^6/uL (3.50-5.40) Hemoglobin 11.3 g/dL (12.0-15.5) Hematocrit 33.1 % (36.0-47.0) Mean Corpuscular Volume 91 fL (79-100) Mean Corpuscular Hemoglobin 31 pg (25-35) Mean Corpuscular Hemoglobin Concent 34 g/dL (31-37) Red Cell Distribution Width 15.7 % (11.5-14.5) Platelet Count 165 x10^3/uL (140-400) Neutrophils (%) (Auto) 69 % (31-73) Lymphocytes (%) (Auto) 20 % (24-48) Monocytes (%) (Auto) 9 % (0-9) Eosinophils (%) (Auto) 2 % (0-3) Basophils (%) (Auto) 0 % (0-3) Neutrophils # (Auto) 5.4 x10^3uL (1.8-7.7) Lymphocytes # (Auto) 1.6 x10^3/uL (1.0-4.8) Monocytes # (Auto) 0.7 x10^3/uL (0.0-1.1) Eosinophils # (Auto) 0.1 x10^3/uL (0.0-0.7) Basophils # (Auto) 0.0 x10^3/uL (0.0-0.2) Sodium Level 141 mmol/L (136-145) Potassium Level 4.0 mmol/L (3.5-5.1) Chloride Level 109 mmol/L (98-107) Carbon Dioxide Level 22 mmol/L (21-32) Anion Gap 10 (6-14) Blood Urea Nitrogen 10 mg/dL (7-20) Creatinine 0.9 mg/dL (0.6-1.0) Estimated GFR (Cockcroft-Gault) 72.9 BUN/Creatinine Ratio 11 (6-20) Glucose Level 125 mg/dL (70-99) Calcium Level 8.0 mg/dL (8.5-10.1) Magnesium Level 2.3 mg/dL (1.8-2.4) Total Bilirubin 0.3 mg/dL (0.2-1.0) Aspartate Amino Transf (AST/SGOT) 22 U/L (15-37) Alanine Aminotransferase (ALT/SGPT) 16 U/L (14-59) Alkaline Phosphatase 86 U/L (46-116) Total Protein 6.0 g/dL (6.4-8.2) Albumin 2.3 g/dL (3.4-5.0) Albumin/Globulin Ratio 0.6 (1.0-1.7) Objective Assessment Fever Klebsiella UTI - POA 06/11. Clinically better Bandemia WILLSON - improving Plan Plan of Care D/cont Cefepime - Rocephin F/u labs and cults Hopefully home 06/15 d/w daughter HADLEY RICE MD June 14, 2016 10:36
[2016-06-14 10:47] VITALS: BP 106/62
[2016-06-14] MEDS: PANTOPRAZOLE 40 MG TABLET.DR. PO SCH (12:22)
[2016-06-14 14:46] VITALS: BP 100/64
[2016-06-14 19:00] VITALS: BP 106/63
[2016-06-14] MEDS: HYDROcodone/APAP 5/325MG 1 TAB TABLET PO PRN (22:00)
[2016-06-15 04:16] LABS: BASO % 1 % (0-3); EOS % 4 % (0-3); HEMATOCRIT 30.8 % (36.0-47.0); HEMOGLOBIN 10.5 g/dL (12.0-15.5); LYMPH # 1.4 x10^3/uL (1.0-4.8); LYMPH % 23 % (24-48); MEAN CORPUSCULAR HEMOGLOBIN 31 pg (25-35); MEAN CORPUSCULAR HGB CONC 34 g/dL (31-37); MEAN CORPUSCULAR VOLUME 90 fL (79-100); MONO % 8 % (0-9); NEUT % 65 % (31-73); PLATELET COUNT 162 x10^3/uL (140-400); RED BLOOD COUNT 3.43 x10^6/uL (3.50-5.40); RED CELL DISTRIBUTION WIDTH 15.2 % (11.5-14.5); WHITE BLOOD COUNT 6.1 x10^3/uL (4.0-11.0)
[2016-06-15 05:06] LABS: ALBUMIN 2.1 g/dL (3.4-5.0); ALBUMIN/GLOBULIN RATIO 0.5 (1.0-1.7); CALCIUM 8.4 mg/dL (8.5-10.1); CREATININE 0.8 mg/dL (0.6-1.0); GFR 83.5; TOTAL BILIRUBIN 0.3 mg/dL (0.2-1.0); TOTAL PROTEIN 6.1 g/dL (6.4-8.2)
[2016-06-15] MEDS: LEVOTHYROXINE 175 MCG TABLET PO SCH ×2 (06:02→10:13)
[2016-06-15 07:00] VITALS: BP 102/62
--- NOTE | 2016-06-15 08:54 | PDOC ---
ABDELRAHMANSHAMARTAIWO NOVELTY PRINTING MACHINE OPERATOR 06/15/16 0854: IM PROGRESS NOTES- Subjective Subjective feeling some better Objective Objective alert no distress Vitals Vital Signs Date Time Temp Pulse Resp B/P (MAP) Pulse Ox O2 Delivery O2 Flow Rate FiO2 06/15/16 07:00 97.8 66 18 102/62 (75) 99 Room Air 97.8 Input & Output Intake and Output 06/15/16 07:00 Intake Total 1650 ml Output Total 220 ml Balance 1430 ml Intake Oral 1650 ml Stool Total 220 ml # Voids 9 # Bowel Movements 2 Physical Exam Physical Exam General appearance - alert,well appearing, and in no distress and oriented to person, place, and time Mental Status - alert, oriented to person, place, and time, affect appropriate to mood Head - normal Chest - clear to auscultation, no wheezes, rales or rhonchi, symmetric air entry Heart - S1 and S2 normal Abdomen - soft, nontender, nondistended, no masses or organomegaly Neurological - alert and oriented Musculoskeletal - no muscular tenderness noted Extremities - no pedal edema Skin - warm and dry Labs Laboratory Tests Test 06/14/16 05:05 06/15/16 03:45 White Blood Count 7.7 x10^3/uL (4.0-11.0) 6.1 x10^3/uL (4.0-11.0) Red Blood Count 3.64 x10^6/uL (3.50-5.40) 3.43 x10^6/uL (3.50-5.40) Hemoglobin 11.3 g/dL (12.0-15.5) 10.5 g/dL (12.0-15.5) Hematocrit 33.1 % (36.0-47.0) 30.8 % (36.0-47.0) Mean Corpuscular Volume 91 fL (79-100) 90 fL (79-100) Mean Corpuscular Hemoglobin 31 pg (25-35) 31 pg (25-35) Mean Corpuscular Hemoglobin Concent 34 g/dL (31-37) 34 g/dL (31-37) Red Cell Distribution Width 15.7 % (11.5-14.5) 15.2 % (11.5-14.5) Platelet Count 165 x10^3/uL (140-400) 162 x10^3/uL (140-400) Neutrophils (%) (Auto) 69 % (31-73) 65 % (31-73) Lymphocytes (%) (Auto) 20 % (24-48) 23 % (24-48) Monocytes (%) (Auto) 9 % (0-9) 8 % (0-9) Eosinophils (%) (Auto) 2 % (0-3) 4 % (0-3) Basophils (%) (Auto) 0 % (0-3) 1 % (0-3) Neutrophils # (Auto) 5.4 x10^3uL (1.8-7.7) 3.9 x10^3uL (1.8-7.7) Lymphocytes # (Auto) 1.6 x10^3/uL (1.0-4.8) 1.4 x10^3/uL (1.0-4.8) Monocytes # (Auto) 0.7 x10^3/uL (0.0-1.1) 0.5 x10^3/uL (0.0-1.1) Eosinophils # (Auto) 0.1 x10^3/uL (0.0-0.7) 0.2 x10^3/uL (0.0-0.7) Basophils # (Auto) 0.0 x10^3/uL (0.0-0.2) 0.0 x10^3/uL (0.0-0.2) Sodium Level 141 mmol/L (136-145) 143 mmol/L (136-145) Potassium Level 4.0 mmol/L (3.5-5.1) 4.0 mmol/L (3.5-5.1) Chloride Level 109 mmol/L (98-107) 109 mmol/L (98-107) Carbon Dioxide Level 22 mmol/L (21-32) 25 mmol/L (21-32) Anion Gap 10 (6-14) 9 (6-14) Blood Urea Nitrogen 10 mg/dL (7-20) 11 mg/dL (7-20) Creatinine 0.9 mg/dL (0.6-1.0) 0.8 mg/dL (0.6-1.0) Estimated GFR (Cockcroft-Gault) 72.9 83.5 BUN/Creatinine Ratio 11 (6-20) 14 (6-20) Glucose Level 125 mg/dL (70-99) 84 mg/dL (70-99) Calcium Level 8.0 mg/dL (8.5-10.1) 8.4 mg/dL (8.5-10.1) Magnesium Level 2.3 mg/dL (1.8-2.4) Total Bilirubin 0.3 mg/dL (0.2-1.0) 0.3 mg/dL (0.2-1.0) Aspartate Amino Transf (AST/SGOT) 22 U/L (15-37) 18 U/L (15-37) Alanine Aminotransferase (ALT/SGPT) 16 U/L (14-59) 15 U/L (14-59) Alkaline Phosphatase 86 U/L (46-116) 76 U/L (46-116) Total Protein 6.0 g/dL (6.4-8.2) 6.1 g/dL (6.4-8.2) Albumin 2.3 g/dL (3.4-5.0) 2.1 g/dL (3.4-5.0) Albumin/Globulin Ratio 0.6 (1.0-1.7) 0.5 (1.0-1.7) Laboratory Tests Test 06/15/16 03:45 White Blood Count 6.1 x10^3/uL (4.0-11.0) Red Blood Count 3.43 x10^6/uL (3.50-5.40) Hemoglobin 10.5 g/dL (12.0-15.5) Hematocrit 30.8 % (36.0-47.0) Mean Corpuscular Volume 90 fL (79-100) Mean Corpuscular Hemoglobin 31 pg (25-35) Mean Corpuscular Hemoglobin Concent 34 g/dL (31-37) Red Cell Distribution Width 15.2 % (11.5-14.5) Platelet Count 162 x10^3/uL (140-400) Neutrophils (%) (Auto) 65 % (31-73) Lymphocytes (%) (Auto) 23 % (24-48) Monocytes (%) (Auto) 8 % (0-9) Eosinophils (%) (Auto) 4 % (0-3) Basophils (%) (Auto) 1 % (0-3) Neutrophils # (Auto) 3.9 x10^3uL (1.8-7.7) Lymphocytes # (Auto) 1.4 x10^3/uL (1.0-4.8) Monocytes # (Auto) 0.5 x10^3/uL (0.0-1.1) Eosinophils # (Auto) 0.2 x10^3/uL (0.0-0.7) Basophils # (Auto) 0.0 x10^3/uL (0.0-0.2) Sodium Level 143 mmol/L (136-145) Potassium Level 4.0 mmol/L (3.5-5.1) Chloride Level 109 mmol/L (98-107) Carbon Dioxide Level 25 mmol/L (21-32) Anion Gap 9 (6-14) Blood Urea Nitrogen 11 mg/dL (7-20) Creatinine 0.8 mg/dL (0.6-1.0) Estimated GFR (Cockcroft-Gault) 83.5 BUN/Creatinine Ratio 14 (6-20) Glucose Level 84 mg/dL (70-99) Calcium Level 8.4 mg/dL (8.5-10.1) Total Bilirubin 0.3 mg/dL (0.2-1.0) Aspartate Amino Transf (AST/SGOT) 18 U/L (15-37) Alanine Aminotransferase (ALT/SGPT) 15 U/L (14-59) Alkaline Phosphatase 76 U/L (46-116) Total Protein 6.1 g/dL (6.4-8.2) Albumin 2.1 g/dL (3.4-5.0) Albumin/Globulin Ratio 0.5 (1.0-1.7) Meds Current Medications Ceftriaxone Sodium 1 gm/ Sodium Chloride 50 ml @ 100 mls/hr Q24H IV Last administered on 06/14/16t 12:22; Start 06/14/16 at 11:00 Vancomycin HCl 1 each 1X ONCE MC ; Start 06/14/16 at 13:30; Stop 06/14/16 at 13 :30; Status DC Assessment Assessment Assessment 1. acute pyleonephritis with sepsis POA 2. severe weakness and debility 3. encephalopathy due to UTI 4. HTN 5. hypothyroid surgical induced 6. elevated BS 7. pulmonary HTN 8. cholelithiasis asymptomatic 9. h/o hydroureteronephrosis UTI sepsis Feb 2015 10. h/o ulcerative colitis with colectomy/ileostomy 11. severe PCL malnutrition decreased oral intake 12. h/o NSTEMI Feb 2015 13. frontal headache secondary to infection 14. hypokalemia POA 15. mild hydronephrosis R POA 16. 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 no JENNIFER or ATN PLAN: acute pyelonephritis with sepsis UTI ED urine sample voided, will obtain urine c/s straight cath Rocephin 1gm IV continue-DCd 06/12 per ID h/o hydroureteronephrosis -will obtain US renal fever T103.2F improved to 98.1-no leukocytosis +sepsis continue IV NS with 20 K 100cc/hr 06/13 mild R sided hydronephrosis per US 06/12 hypotension 06/12 T0300: 103.0F, this AM 99.2F ID consulted cefepime/vanco started 06/12 straight cath urine c/s 06/12-prelim <[id number] prelim UA ED gm neg iraj Vanc dc 06/12 Tm101.3F 2300 06/12-slowly improving Tm99.0F 06/14 UA final PSA hypokalemia/hypomagnesia ADmit K 3.4 06/15 4.0 recheck 06/12 KCL 20po x1 07/02 IVF NS 20K 100cc/hr 06/13 Mg 1.6 -Mg SO4 4gm IV x 1 06/14 Mg 2.3 CKD II with ARF POA VMN due to dehydration no JENNIFER or ATN Admit BUN 13 06/12 15 06/15 11 Cr 0.9 1.3 0.8 Improved with IVF abnormal glucose check Hba1c 06/12 5.4 WILLSON secondary to infection Tylenol [place] 5/325 prn improved malnutrition support intake appetite improving weakness/debility PT OT eval and treat encephalopathy improved DVT/GI prophylaxis SCD/DARIO PPI For more details regarding further plans, please refer to the orders. Plan Plan For further plan of care, please refer to the orders. CAPRICE RADER MD 06/15/16 1055: IM PROGRESS NOTES- Assessment Assessment Not eating much.D/w pt and her daughter. continue fluids,antibiotics. If stable,discharge in AM. The patient was seen and examined by me. Chart reviewed and plan of care formulated. Discussed with, reviewed and agree with TOE PULLER's notes, plan of care and orders with modifications as necessary. For more details regarding further plans, please refer to the orders. TAIWO ARTHUR APRN June 15, 2016 08:54 CAPRICE RADER MD June 15, 2016 10:55
--- NOTE | 2016-06-15 10:00 | PDOC ---
Infectious Disease Note Subjective Subjective Better. + Appetite. WILLSON is better ROS ROS GEN: Denies fevers, chills, sweats HEENT: Denies blurred vision, sore throat CV: Denies chest pain RESP: Denies shortness of air, cough GI: Denies n/v/d NEURO: Denies confusion, dizziness MSK: Denies weakness, joint pain/swelling Vital Sign Vital Signs Vital Signs Date Time Temp Pulse Resp B/P (MAP) Pulse Ox O2 Delivery O2 Flow Rate FiO2 06/15/16 07:00 97.8 66 18 102/62 (75) 99 Room Air 97.8 Physical Exam PHYSICAL EXAM GENERAL: NAD, Alert HEENT: PERRL, OC/OP - clear NECK: Supple, no JVD, no LN LUNGS: Clear HEART: S1S2, no gallop, no murmur ABD: Soft, NT, no organomegaly, no rebound EXT: No edema, no cyanosis. new toe nail indonesian SENIOR HEALTH EDUCATOR: Alert, oriented x 3, no focal neurologic deficit SKIN: No rash IV: ok Labs Lab Laboratory Tests Test 06/15/16 03:45 White Blood Count 6.1 x10^3/uL (4.0-11.0) Red Blood Count 3.43 x10^6/uL (3.50-5.40) Hemoglobin 10.5 g/dL (12.0-15.5) Hematocrit 30.8 % (36.0-47.0) Mean Corpuscular Volume 90 fL (79-100) Mean Corpuscular Hemoglobin 31 pg (25-35) Mean Corpuscular Hemoglobin Concent 34 g/dL (31-37) Red Cell Distribution Width 15.2 % (11.5-14.5) Platelet Count 162 x10^3/uL (140-400) Neutrophils (%) (Auto) 65 % (31-73) Lymphocytes (%) (Auto) 23 % (24-48) Monocytes (%) (Auto) 8 % (0-9) Eosinophils (%) (Auto) 4 % (0-3) Basophils (%) (Auto) 1 % (0-3) Neutrophils # (Auto) 3.9 x10^3uL (1.8-7.7) Lymphocytes # (Auto) 1.4 x10^3/uL (1.0-4.8) Monocytes # (Auto) 0.5 x10^3/uL (0.0-1.1) Eosinophils # (Auto) 0.2 x10^3/uL (0.0-0.7) Basophils # (Auto) 0.0 x10^3/uL (0.0-0.2) Sodium Level 143 mmol/L (136-145) Potassium Level 4.0 mmol/L (3.5-5.1) Chloride Level 109 mmol/L (98-107) Carbon Dioxide Level 25 mmol/L (21-32) Anion Gap 9 (6-14) Blood Urea Nitrogen 11 mg/dL (7-20) Creatinine 0.8 mg/dL (0.6-1.0) Estimated GFR (Cockcroft-Gault) 83.5 BUN/Creatinine Ratio 14 (6-20) Glucose Level 84 mg/dL (70-99) Calcium Level 8.4 mg/dL (8.5-10.1) Total Bilirubin 0.3 mg/dL (0.2-1.0) Aspartate Amino Transf (AST/SGOT) 18 U/L (15-37) Alanine Aminotransferase (ALT/SGPT) 15 U/L (14-59) Alkaline Phosphatase 76 U/L (46-116) Total Protein 6.1 g/dL (6.4-8.2) Albumin 2.1 g/dL (3.4-5.0) Albumin/Globulin Ratio 0.5 (1.0-1.7) Objective Assessment Fever - resolved Klebsiella UTI - POA 5/7. Clinically better Bandemia WILLSON - improved Plan Plan of Care D/cont Rocephin change to po keflex for 7 days Ok to d/c home from ID standpoint d/w daughter HADLEY RICE MD June 15, 2016 10:00
[2016-06-15] MEDS: PANTOPRAZOLE 40 MG TABLET.DR. PO SCH (10:13)
[2016-06-15 11:00] VITALS: BP 105/66
[2016-06-15] MEDS: CEPHALEXIN 250 MG CAPSULE. PO SCH ×3 (13:39→20:40)
[2016-06-15 15:00] VITALS: BP 103/64
[2016-06-15 19:00] VITALS: BP 113/63
[2016-06-15] MEDS: HYDROcodone/APAP 5/325MG 1 TAB TABLET PO PRN (20:40)
[2016-06-15 23:00] VITALS: BP 129/71
--- NOTE | 2016-06-16 07:07 | PDOC3 ---
TEJ-TAIWO IBANEZ DREDGE PIPEMAN 06/16/16 0707: IM DISCHARGE & PROGRESS NOTES Date of Admission Date of Admission Date of Admission: June 11, 2016 at 22:20 Date of Discharge Date of Discharge 06/16/16 Primary Diagnosis Primary Diagnosis 1. acute pyleonephritis with sepsis POA 2. severe weakness and debility 3. encephalopathy due to UTI 4. HTN 5. hypothyroid surgical induced 6. elevated BS 7. pulmonary HTN 8. cholelithiasis asymptomatic 9. h/o hydroureteronephrosis UTI sepsis Feb 2015 10. h/o ulcerative colitis with colectomy/ileostomy 11. severe PCL malnutrition decreased oral intake 12. h/o NSTEMI Feb 2015 13. frontal headache secondary to infection 14. hypokalemia POA 15. mild hydronephrosis R POA 16. 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 no JENNIFER or ATN Consults Consults Bharath Jennings MD Procedures Procedures None Labs Labs Laboratory Tests Test 06/14/16 05:05 06/15/16 03:45 White Blood Count 7.7 x10^3/uL (4.0-11.0) 6.1 x10^3/uL (4.0-11.0) Red Blood Count 3.64 x10^6/uL (3.50-5.40) 3.43 x10^6/uL (3.50-5.40) Hemoglobin 11.3 g/dL (12.0-15.5) 10.5 g/dL (12.0-15.5) Hematocrit 33.1 % (36.0-47.0) 30.8 % (36.0-47.0) Mean Corpuscular Volume 91 fL (79-100) 90 fL (79-100) Mean Corpuscular Hemoglobin 31 pg (25-35) 31 pg (25-35) Mean Corpuscular Hemoglobin Concent 34 g/dL (31-37) 34 g/dL (31-37) Red Cell Distribution Width 15.7 % (11.5-14.5) 15.2 % (11.5-14.5) Platelet Count 165 x10^3/uL (140-400) 162 x10^3/uL (140-400) Neutrophils (%) (Auto) 69 % (31-73) 65 % (31-73) Lymphocytes (%) (Auto) 20 % (24-48) 23 % (24-48) Monocytes (%) (Auto) 9 % (0-9) 8 % (0-9) Eosinophils (%) (Auto) 2 % (0-3) 4 % (0-3) Basophils (%) (Auto) 0 % (0-3) 1 % (0-3) Neutrophils # (Auto) 5.4 x10^3uL (1.8-7.7) 3.9 x10^3uL (1.8-7.7) Lymphocytes # (Auto) 1.6 x10^3/uL (1.0-4.8) 1.4 x10^3/uL (1.0-4.8) Monocytes # (Auto) 0.7 x10^3/uL (0.0-1.1) 0.5 x10^3/uL (0.0-1.1) Eosinophils # (Auto) 0.1 x10^3/uL (0.0-0.7) 0.2 x10^3/uL (0.0-0.7) Basophils # (Auto) 0.0 x10^3/uL (0.0-0.2) 0.0 x10^3/uL (0.0-0.2) Sodium Level 141 mmol/L (136-145) 143 mmol/L (136-145) Potassium Level 4.0 mmol/L (3.5-5.1) 4.0 mmol/L (3.5-5.1) Chloride Level 109 mmol/L (98-107) 109 mmol/L (98-107) Carbon Dioxide Level 22 mmol/L (21-32) 25 mmol/L (21-32) Anion Gap 10 (6-14) 9 (6-14) Blood Urea Nitrogen 10 mg/dL (7-20) 11 mg/dL (7-20) Creatinine 0.9 mg/dL (0.6-1.0) 0.8 mg/dL (0.6-1.0) Estimated GFR (Cockcroft-Gault) 72.9 83.5 BUN/Creatinine Ratio 11 (6-20) 14 (6-20) Glucose Level 125 mg/dL (70-99) 84 mg/dL (70-99) Calcium Level 8.0 mg/dL (8.5-10.1) 8.4 mg/dL (8.5-10.1) Magnesium Level 2.3 mg/dL (1.8-2.4) Total Bilirubin 0.3 mg/dL (0.2-1.0) 0.3 mg/dL (0.2-1.0) Aspartate Amino Transf (AST/SGOT) 22 U/L (15-37) 18 U/L (15-37) Alanine Aminotransferase (ALT/SGPT) 16 U/L (14-59) 15 U/L (14-59) Alkaline Phosphatase 86 U/L (46-116) 76 U/L (46-116) Total Protein 6.0 g/dL (6.4-8.2) 6.1 g/dL (6.4-8.2) Albumin 2.3 g/dL (3.4-5.0) 2.1 g/dL (3.4-5.0) Albumin/Globulin Ratio 0.6 (1.0-1.7) 0.5 (1.0-1.7) Medications Medications Medications reviewed and reconciled for discharge. Brief hospital course Brief hospital course This 80 year old female who presented with acute pyelonephritis was admitted. The following is a summary of her treatment plan: acute pyelonephritis with sepsis UTI ED urine sample voided, will obtain urine c/s straight cath Rocephin 1gm IV continue-DCd 06/12 per ID h/o hydroureteronephrosis -will obtain US renal fever T103.2F improved to 98.1-no leukocytosis +sepsis continue IV NS with 20 K 100cc/hr 06/13 mild R sided hydronephrosis per US 06/12 hypotension 06/12 T0300: 103.0F, this AM 99.2F ID consulted cefepime stopped 06/15/16/vanco DC 06/12 straight cath urine c/s 06/12-prelim <[id number] prelim UA ED gm neg iraj Vanc dc 06/12 Tm101.3F 2300 06/12-slowly improving Tm99.0F 06/14 UA final PSA Tm 99.4F 06/15 Rocephin DC-Keflex po 500mg qid for discharge hypokalemia/hypomagnesia ADmit K 3.4 06/15 4.0 recheck 06/12 KCL 20po x1 07/02 IVF NS 20K 100cc/hr 06/13 Mg 1.6 -Mg SO4 4gm IV x 1 06/14 Mg 2.3 CKD II with ARF POA VMN due to dehydration no JENNIFER or ATN Admit BUN 13 06/12 15 06/15 11 Cr 0.9 1.3 0.8 Improved with IVF abnormal glucose check Hba1c 06/12 5.4 WILLSON secondary to infection Tylenol [place] 5/325 prn improved -still occurring intermittently frontal/R temporal-shooting type of pain malnutrition support intake appetite improving Ensure supplements weakness/debility PT OT eval and treat encephalopathy improved DVT/GI prophylaxis SCD/DARIO PPI For more details regarding the past history, family history, social history, surgical history and other details, please refer to History and Physical. Plan to DC home with HHN PT OT. Please see discharge orders. Subjective feeling some better Objective alert no distress Vitals Vital Signs Date Time Temp Pulse Resp B/P (MAP) Pulse Ox O2 Delivery O2 Flow Rate FiO2 06/15/16 23:00 98.4 64 18 129/71 (90) 100 98.4 06/15/16 21:46 Room Air Physical Exam General appearance - alert,well appearing, and in no distress and oriented to person, place, and time Mental Status - alert, oriented to person, place, and time, affect appropriate to mood Head - normal Chest - clear to auscultation, no wheezes, rales or rhonchi, symmetric air entry Heart - S1 and S2 normal Abdomen - soft, nontender, nondistended, no masses or organomegaly Neurological - alert and oriented Musculoskeletal - no muscular tenderness noted Extremities - no pedal edema Skin - warm and dry Medications Medications reviewed. Allergy Allergies Coded Allergies Type Severity Reaction Last Updated Verified meperidine Allergy Intermediate 06/14/16 Yes Follow up Sunday next week Disposition: Home health services Comments Discharge Management - 35 minutes. For other details please refer to discharge instructions CAPRICE RADER MD 06/16/16 0957: IM DISCHARGE & PROGRESS NOTES Brief hospital course Brief hospital course D/w patient and daughter.Encourage to drink ensure bid. The patient was seen and examined by me. Chart reviewed and plan of care formulated. Discussed with, reviewed and agree with DOCKETING SPECIALIST's notes, plan of care and orders with modifications as necessary. Discharge Management - 35 minutes. se in office in 5 days. TAIWO ARTHUR APRN June 16, 2016 07:07 CAPRICE RADER MD June 16, 2016 09:57
--- NOTE | 2016-06-16 07:08 | DISCH ---
DISCHARGE DISCHARGE DATE: June 16, 2016 FINAL DIAGNOSIS Problems Medical Problems: (1) Altered level of consciousness Status: Acute (2) Urinary tract infection Status: Acute CONDITION ON DISCHARGE: Stable HOME HEALTH: Yes PT. HAS FUNCTIONAL LIMITATIONS: Yes FACE TO FACE ENCOUNTER: Yes POST DISCHARGE ORDERS ACTIVITY ORDERS: Activity as tolerated WEIGHT BEARING STATUS: Full weight bearing DIET AFTER DISCHARGE: Cardiac (Ensure 1 can bid ) FOLLOW-UP PHYSICIAN FOLLOW-UP: Dr. Adam Wilson next week TREATMENT/EQUIPMENT ORDERS ADAPTIVE EQUIPMENT NEEDED: None TAIWO ARTHUR APRN June 16, 2016 07:08
[2016-06-16] MEDS ORDERED: CEPH250C PO (07:09)
--- NOTE | 2016-06-16 07:13 | DISCH ---
DISCHARGE WITH HOME HEALTH DISCHARGE INFORMATION: Discharge Date: June 16, 2016 Final Diagnosis: Problems Medical Problems: (1) Altered level of consciousness Status: Acute (2) Urinary tract infection Status: Acute Condition on Discharge: Stable HOME HEALTH: Face to Face: I certify this patient is under my care and that my nurse practitioner working with me, had a face to face encounter that meets the physician face to face encounter requirements with this patient on 06/16/16. Medical Condition(s): Other (acute pyleonephritis with sepsis ) [facility] For: Assess/Skilled Observatio Physical Therapy For: Evalulation/Treatment Occupational Therapy For: Evaluation/Treatment FOLLOW-UP: Follow up with: Dr. Adam Wilson next week. TREATMENT/EQUIPMENT ORDERS Adaptive Equipment Issued: None CERTIFICATION STATEMENT: Certification Statement: Certification Statement: Based on the above finding, I certify that this patient is confined to the home and needs intermittent fdc care, physical therapy and/or speech therapy, or continues to need occupational therapy.~ This patient is under my care, and I have initiated the establishment of the plan of care.~ This patient will be followed by myself or a community physician who will periodically review the plan of care. TAIWO ARTHUR APRN June 16, 2016 07:13
[2016-06-16 07:16] LABS: BASO % 1 % (0-3); EOS % 5 % (0-3); HEMATOCRIT 32.8 % (36.0-47.0); HEMOGLOBIN 10.8 g/dL (12.0-15.5); LYMPH # 1.1 x10^3/uL (1.0-4.8); LYMPH % 20 % (24-48); MEAN CORPUSCULAR HEMOGLOBIN 30 pg (25-35); MEAN CORPUSCULAR HGB CONC 33 g/dL (31-37); MEAN CORPUSCULAR VOLUME 92 fL (79-100); MONO % 10 % (0-9); NEUT % 64 % (31-73); PLATELET COUNT 188 x10^3/uL (140-400); RED BLOOD COUNT 3.55 x10^6/uL (3.50-5.40); RED CELL DISTRIBUTION WIDTH 15.3 % (11.5-14.5); WHITE BLOOD COUNT 5.5 x10^3/uL (4.0-11.0)
[2016-06-16 07:34] LABS: ALBUMIN 2.4 g/dL (3.4-5.0); ALBUMIN/GLOBULIN RATIO 0.6 (1.0-1.7); CREATININE 0.7 mg/dL (0.6-1.0); GFR 97.4; POTASSIUM 4.1 mmol/L (3.5-5.1); TOTAL BILIRUBIN 0.4 mg/dL (0.2-1.0); TOTAL PROTEIN 6.2 g/dL (6.4-8.2)
[2016-06-16] MEDS: LEVOTHYROXINE 175 MCG TABLET PO SCH (08:57)
[2016-06-16] MEDS: CEPHALEXIN 250 MG CAPSULE. PO SCH (08:57)
[2016-06-16] MEDS: PANTOPRAZOLE 40 MG TABLET.DR. PO SCH (08:58)
== END 2016-06-16 11:21 | disposition home or self-care (01) | DRG 871 ==
LOC: ER 20:27 → 5 SOUTH 22:20
PROVIDERS: ADMIT Internal Medicine; ATTEND Internal Medicine
DX: A41.9 Sepsis, unspecified organism (principal); G93.40 Encephalopathy, unspecified; E43 Unspecified severe protein-calorie malnutrition; N17.0 Acute kidney failure with tubular necrosis; N10 Acute pyelonephritis; E46 Unspecified protein-calorie malnutrition; K80.20 Calculus of gallbladder without cholecystitis without obstruction; B96.1 Klebsiella pneumoniae [K. pneumoniae] as the cause of diseases classified elsewhere; B96.89 Other specified bacterial agents as the cause of diseases classified elsewhere; E03.9 Hypothyroidism, unspecified; E83.42 Hypomagnesemia; E86.0 Dehydration; E87.6 Hypokalemia; I12.9 Hypertensive chronic kidney disease with stage 1 through stage 4 chronic kidney disease, or unspecified chronic kidney disease; I25.2 Old myocardial infarction; I27.2 Other secondary pulmonary hypertension; N18.2 Chronic kidney disease, stage 2 (mild); Z82.49 Family history of ischemic heart disease and other diseases of the circulatory system; Z87.440 Personal history of urinary (tract) infections; Z90.49 Acquired absence of other specified parts of digestive tract; M19.90 Unspecified osteoarthritis, unspecified site; Z68.29 Body mass index [BMI] 29.0-29.9, adult
CPT/HCPCS: 36415; 71020; 76770; 80048; 80053; 81001; 83036; 83735; 85007; 85027; 87086; 87186; J0690; J0692; J0696; J3370; J3475; J7030; J7040; 97110; 97116; 97530; 97535; 99285-25

== ENCOUNTER 2016-08-27 21:05 | Emergency (ER) | payer MEDICARE ==
[~2016-08-27] VITALS: Ht 152.4 cm; Wt 72.1 kg
[~2016-08-27 21:05] MED LIST changes: +ASPI-612 PO; -ASPI81TA9 PO; +CEPH250C PO; -HYDR-2666 PO; +HYDR-2758 PO
[2016-08-27 21:25] VITALS: BP 161/78
[2016-08-27] MEDS ORDERED: ONDANSETRON ODT 4 MG TAB.RAPDIS. PO ONE (22:00)
[2016-08-27] MEDS ORDERED: HYDROmorphone 2 MG/ML VIAL IM ONE (22:00)
[2016-08-27] MEDS ORDERED: TRAM-48 PO (22:32)
--- NOTE | 2016-08-27 22:33 | PHYS DOC ---
Past Medical History Past Medical History: Arthritis, Hypothyroid Additional Past Medical Histor: Colitis Past Surgical History: Colectomy Additional Past Surgical Histo: Thyroidectomy Alcohol Use: None Drug Use: None Adult General Chief Complaint Chief Complaint: LOWER BACK PAIN OR INJURY HPI HPI Patient is a 80 year old female who presents to the ER today secondary to pain to her lower back. Patient reports that her granddaughter was jumping on a bed fell down and her head was stuck in between the wall and the bed and she was trying to lift the bed up with her cane as a lever when she felt a pop to her lower back and started having excruciating pain. Patient presents to the ER today complaining of pain to lower back. Patient has a loss of bladder or bowel function. Patient has any weakness or upper or lower 70s. Patient denies any paresthesias to her perineal area. Patient has a history of hypertension diabetes and colitis. Patient does have a colostomy in place. Patient is allergic to any medications. Patient's physical exam is significant for tenderness to palpation over L3-4-5 region. Patient has some mild paraspinal tenderness to palpation as well. Patient has no reproducible pain with flexion and rotation of her hip. Patient' s pelvis is stable. Patient's motor exam is normal. Patient's sensory exam was unremarkable. Patient's lumbosacral x-ray revealed arthritis, normal alignment, no fracture. Patient does have a Karlos filter in place. Patient was given Dilaudid 1 mg IM and Zofran sublingual to assist her with her pain. Assessment and plan This is a 80-year-old female who presents here today with lower back pain. Patient's x-rays are unremarkable. Patient's symptoms are most likely secondary to mechanical strain. Patient is neurologically intact. Patient be discharged home with [facility] and will be instructed to follow-up with her primary care physician in 2 days to assist her further with pain if needed. Is no evidence of any neurological compromise at this time. There is no evidence of compression fracture. Current Medications Current Medications Current Medications Medications (Trade) Dose Ordered Sig/Charlie Start Time Stop Time Status Last Admin Dose Admin Hydromorphone HCl (Dilaudid) 1 mg 1X ONCE 08/27/16 22:00 08/27/16 22:01 DC 08/27/16 21:53 1 MG Ondansetron HCl (Zofran Odt) 4 mg 1X ONCE 08/27/16 22:00 08/27/16 22:01 DC 08/27/16 21:53 4 MG Allergies Allergies Allergies Coded Allergies Type Severity Reaction Last Updated Verified meperidine Allergy Intermediate 06/14/16 Yes Physical Exam Physical Exam Constitutional: Denies fever or chills [] Eyes: Denies change in visual acuity, redness, or eye pain [] All other review systems are negative except as documented in the history of present illness portion. Constitutional: Well developed, well nourished, no acute distress, non-toxic appearance. [] HENT: Normocephalic, atraumatic, bilateral external ears normal, oropharynx moist, no oral exudates, nose normal. [] Eyes: EOMI, conjunctiva normal, no discharge. [] Neck: Normal range of motion, supple, no stridor. [] Cardiovascular:Heart rate regular rhythm Lungs & Thorax: Bilateral breath sounds clear to auscultation [] Abdomen: Bowel sounds normal, soft, no tenderness, no masses, no pulsatile masses. [] Skin: Warm, dry, no erythema Back: See above. Extremities: No tenderness, no cyanosis, no clubbing, ROM intact, no edema. [] Neurologic: Alert and oriented X 3, normal motor function, normal sensory function, no focal deficits noted. [] Psychologic: Affect normal, judgement normal, mood normal. [] Current Patient Data Vital Signs Vital Signs Date Time Temp Pulse Resp B/P (MAP) Pulse Ox O2 Delivery O2 Flow Rate FiO2 08/27/16 21:25 98.6 72 16 161/78 (105) 100 Room Air 98.6 EKG EKG [] Radiology/Procedures Radiology/Procedures [] Course & Med Decision Making Course & Med Decision Making Pertinent Labs and Imaging studies reviewed. (See chart for details) [] Dragon Disclaimer Dragon Disclaimer This electronic medical record was generated, in whole or in part, using a voice recognition dictation system. Departure Departure Impression: Primary Impression: Low back pain Disposition: HOME, SELF-CARE Condition: IMPROVED Referrals: CAPRICE RADER MD (PCP) Patient Instructions: Low Back Strain with [facility]hab[facility] Additional Instructions: Please follow up with your family doctor in one to 2 days for reevaluation and assistance in managing her pain. Scripts Tramadol Hcl (ULTRAM) 50 Mg Tablet 1 TAB PO Q6HRS, #14 TAB Prov: SAMMY HEAD MD 08/27/16 SAMMY HEAD MD Aug 27, 2016 22:33
--- NOTE | 2016-08-28 08:10 | RAD ---
Lumbar spine, 3 views, 08/27/2016: History: Pain, injury The bony structures are demineralized. There is partial sacralization of the right transverse process at L5. No fracture is identified. There are minimal scattered marginal spurs. There are moderate degenerative changes involving the facet joints in the lower lumbar spine. There is a mild associated grade 1 spondylolisthesis at L4-5. An inferior vena cava filter is in place at the L2 level. Moderate aortic calcific plaquing is present. IMPRESSION: 1. Demineralization. 2. Grade 1 spondylolisthesis at L4-5 due to facet joint arthropathy. 3. No acute bony abnormality is detected.
== END 2016-08-27 23:03 | disposition home or self-care (01) ==
LOC: ER 21:05
DX: M54.5 Low back pain (principal); M19.90 Unspecified osteoarthritis, unspecified site; E89.0 Postprocedural hypothyroidism; E11.9 Type 2 diabetes mellitus without complications; I10 Essential (primary) hypertension; Z93.3 Colostomy status; Z88.8 Allergy status to other drugs, medicaments and biological substances; Z90.49 Acquired absence of other specified parts of digestive tract; X58.XXXA Exposure to other specified factors, initial encounter; Y93.89 Activity, other specified; Y92.89 Other specified places as the place of occurrence of the external cause; Y99.8 Other external cause status
CPT/HCPCS: 72100; 96372; 99284; J1170; Q0162